=== PATIENT | female | born 1955 | race Caucasian/White ===

== ENCOUNTER 2022-06-30 02:23 | Emergency (ER) | payer MEDICARE, SELFPAY ==
[2022-06-30 02:39] VITALS: BP 128/81; PULSE 78; RESP 20; TEMP 37.2; O2SAT 96; BMI 35.5
--- NOTE | 2022-06-30 03:40 | ED.NURSE ---
registration states patient left without being seen by MD, form signed.
--- OUTSIDE RECORDS SUMMARY | 2022-06-30 03:51 | XMS_ITS | Encounter Summary ---
:1955 Author Organization [place] Address [address] [place] [address]. [place] [address] Care Team Providers Name Role Phone Denise Kwan Primary Care Provider Encounter Details Date Type Department Care Team Description 01/16/2018 Orders Only [facility] Reynaldo Delaney recruit instructor [address] [facility] [address] [place] [address] Social History Tobacco Use Types Packs/Day Years Used Date Smoking Tobacco: Never Smokeless Tobacco: Never Alcohol Use Standard Drinks/Week Comments Yes 0 (1 standard drink = 0.6 oz pure alcoho l) 1 drink monthly Sex Assigned at Date Recorded Not on file documented as of this encounter Plan of Treatment Not on filedocumented as of this encounter Visit Diagnoses Not on filedocumented in this encounter Care Teams Furnace And Wash Equipment Operator Relationship Specialty Start Date End Date Denise Kwan PCP - General Nurse Practitioner 02/02/15 [facility] [address] [place] [address] documented as of this encounter
--- OUTSIDE RECORDS SUMMARY | 2022-06-30 03:51 | XMS_ITS | Encounter Summary ---
:1955 Author Organization [place] Address [facility] [place] [address] Care Team Providers Name Role Phone Denise Kwan Primary Care Provider Reason for Referral Diagnostic Imaging XR (Routine) - Closed Specialty Diagnoses / Procedures Referred By Contact Refer red To Contact Diagnoses Left hip pain Osteoarthritis of hip Tanmay Beebe, Procedures XR Joint Injection Major Left [facility] [address] [facility] [address] [place] [address] Referral ID Status Reason Start Date Expiration Date Visits Requ ested Visits Authorized [id number] Closed 02/01/2022 02/01/2023 1 1 Reason for Visit Diagnostic Imaging XR (Routine) - Closed Specialty Diagnoses / Procedures Referred By Contact Refer red To Contact Diagnoses Left hip pain Osteoarthritis of hip Tanmay Beebe, Procedures XR Joint Injection Major Left [facility] [address] [place] [address] Referral ID Status Reason Start Date Expiration Date Visits Requ ested Visits Authorized [id number] Closed 02/01/2022 02/01/2023 1 1 Encounter Details Date Type Department Care Team Description 02/02/[address] [facility], Left hip pain; [facility] Tanmay Jay, Osteoarthritis of hip [address] [place], [place] OR[facility]EDICS [address] [phone] [address] [place] [address] Social History Tobacco Use Types Packs/Day Years Used Date Smoking Tobacco: Never Smokeless Tobacco: Never Alcohol Use Standard Drinks/Week Comments Yes 0 (1 standard drink = 0.6 oz pure alcoho l) 1 drink monthly Sex Assigned at Date Recorded Not on file COVID-19 Exposure Response Date Recorded In the last 10 days, have you been in contact with No / Unsu re 02/02/2022 3:14 PM CDT someone who was confirmed or suspected to have Coronavirus/COVID-19? documented as of this encounter Last Filed Vital Signs Vital Sign Reading Time Taken Comments Blood Pressure 128/66 02/02/2022 3:31 PM CDT Pulse 65 02/02/2022 3:31 PM CDT Temperature - - Respiratory Rate - - Oxygen Saturation - - Inhaled Oxygen Concentration - - Weight - - Height - - Body Mass Index - - documented in this encounter Medications at Time of Discharge Medication Sig Dispensed Refills Start Date End Date aspirin EC 325 MG Take one Aspirin tab 70 tablet 3 02/19/20 15 tabletIndications: twice daily for 5 Status post total right weeks. knee replacement ATENOLOL PO Take 50 mg by mouth 0 daily BIESTROGEN,20-80, 5 Apply topically 2 times 0 MG/GM CREAM daily fluticasone (FLONASE) 50 [place] 2 sprays into 0 MCG/ACT nasal spray both nostrils daily HYDROcodone-acetaminophe Take 1 tablet by mouth 75 tablet 0 02/18/2015 n (NORCO) 5-325 MG per every 6 hours as needed tabletIndications: for moderate to severe Status post total right pain knee replacement mupirocin (BACTROBAN) 2 Apply into each nare 2 0 % nasal ointment times daily order for Equipment being ordered: commode, long handled pack press operator 1 each 0 02/20/2015 DMEIndications: Status Treatment Diagnosis: decreas ed ADL performance secondary to R TKA post total right knee replacement order for Equipment being ordered: Walker Wheels ( E0155) and Walker (E0135) 1 each 0 02/16/2015 DMEIndications: Status Treatment Diagnosis: Impaired gait stability s /p TKA. post total right knee replacement PROGESTERONE MICRONIZED Take 100 mg by mouth 0 PO daily triamterene-hydrochlorot Take 1 tablet by mouth 0 hiazide (MAXZIDE-25) daily 37.5-25 MG per tablet documented as of this encounter Progress Notes Lan Delaney RN - 02/02/2022 3:37 PM CDT Pt was in Radiology today for a left hip steroid injection. Pt tolerated ortho procedure well. Pre procedure pain was 2/10 post procedure pain level unchanged. Procedure was completed by Ana SHEPHERD. There were no complications during this procedure. Pt verbalized understanding of written and verbal instructions and left department in stable and satisfactory condition with self. There is no evidence of bleeding or any other complications upon discharge. documented in this encounter Plan of Treatment Not on filedocumented as of this encounter Procedures Procedure Name Priority Date/Time Associated Diagnosis Comme nts XR JOINT INJECTION Routine 02/02/2022 4:06 PM Left hip p ain Results for this MAJOR LEFT CDT Osteoarthritis of procedure are in hip the results section. documented in this encounter Results XR Joint Injection Major Left (02/02/2022 4:06 PM CDT) Anatomical Region Laterality Modality Lower Extremity Left Radio Fluoroscopy Specimen (Source) Anatomical Location Collection Method / Collectio n Time Received Time / Laterality Volume Impressions 02/03/2022 1:07 PM CDT IMPRESSION: ??Technically successful left hip steroid/anesthetic injection with no initial pain relief. ? ?Long-term results pending. BECK FIELDS PA-C Narrative 02/03/2022 1:07 PM CDT XR JOINT INJECTION MAJOR LEFT ? 02/02/2022 4:06 PM ?? History: ??Left hip intraarticular injec tion. Left hip pain; Osteoarthritis of hip. ?? PROCEDURE: The risks (including bleeding , infection, and allergy to contrast and medications) and benefits o f the procedure were explained to the patient and consent was obtained. ??Using sterile technique and fluoroscopic guidance, a #22 gauge needl e was placed into the left hip joint using an anterior approach. ??A sm all amount of contrast was injected to confirm intraarticular locat ion of the needle tip. ??40mg of Kenalog and 3-4 mL Marcaine 0.5% were injected. ??Estimated blood loss during the procedure was less than 5 mL. No specimens collected. No initial complication. ?? Fluoroscopy time: 0.3 minutes Images Obtained: 1 Medications: 3 mL of approximately 1 mL of Isovue-M 200, 40 mg of Kenalog and 3 mL of Marcaine 0.5% The patients pain level (0-10 scale) wer e as follows: ?? PRE INJECTION ?? 2 ?? POST INJECTION 2 ?? Procedure Note Beck Fields PA-C - 02/03/2022F ormatting of this note might be different from the original. XR JOINT INJECTION MAJOR LEFT 02/02/2022 4:06 PM History: Left hip intraarticular injecti on. Left hip pain; Osteoarthritis of hip. PROCEDURE: The risks (including bleeding , infection, and allergy to contrast and medications) and benefits o f the procedure were explained to the patient and consent was obtained. Using sterile technique and fluoroscopic guidance, a #22 gauge needl e was placed into the left hip joint using an anterior approach. A smal l amount of contrast was injected to confirm intraarticular locat ion of the needle tip. 40mg of Kenalog and 3-4 mL Marcaine 0.5% were injected. Estimated blood loss during the procedure was less than 5 mL. No specimens collected. No initial complication. Fluoroscopy time: 0.3 minutes Images Obtained: 1 Medications: 3 mL of approximately 1 mL of Isovue-M 200, 40 mg of Kenalog and 3 mL of Marcaine 0.5% The patients pain level (0-10 scale) wer e as follows: PRE INJECTION 2 POST INJECTION 2 IMPRESSION: Technically successful left hip steroid/anesthetic injection with no initial pain relief. L neeru-term results pending. BECK FIELDS PA-C Tanmay Beebe MD [facility] ORDRachel KUSHALMANDI documented in this encounter Visit Diagnoses Diagnosis Left hip pain Pain in joint, pelvic region and thigh Osteoarthritis of hip Osteoarthrosis, unspecified whether gene ralized or localized, pelvic region and thigh documented in this encounter Administered Medications Inactive Administered Medications - up to 3 most recent administrations Medication Order MAR Action Action Date Dose Rate Site bupivacaine (PF) Given by Other Clinician 02/02/2022 3:58 PM 5 mg (MARCAINE) 0.5 % injection CDT Starting on Mon02/02/22 at 1535, For 1 dose, Lan Delaney: cabinet override iopamidol (ISOVUE-M 200) Given by Other 02/02/2022 3:59 PM CDT 1 mL solution 10 mL Clinician 10 mL, INTRA-ARTICULAR, ONCE, On Mon02/02/22 at 1600, For 1 dose, Supplied and administered by Radiology. lidocaine (PF) (XYLOCAINE) 1 % Given by Other 02/02/2022 3:58 PM CDT 10 mg injection Clinician Starting on Mon02/02/22 at 1535, For 1 dose, Lan Delaney: jesseniainet override triamcinolone (KENALOG-40) 40 Given by Other 02/02/2022 3:58 PM CDT 4 0 mg MG/ML injection Clinician Starting on Mon02/02/22 at 1535, For 1 dose, Lan Delaney: jesseniainet override documented in this encounter Care Teams Car Body Inspector Relationship Specialty Start Date End Date Denise Kwan PCP - General Nurse Practitioner 02/02/15 [facility] [address] [place] [address] documented as of this encounter
--- OUTSIDE RECORDS SUMMARY | 2022-06-30 03:51 | XMS_ITS | Encounter Summary ---
:1955 Author Organization [place] Address [facility] [place] [address] Care Team Providers Name Role Phone Denise Kwan Primary Care Provider Reason for Referral Diagnostic Imaging XR - Closed Specialty Diagnoses / Procedures Referred By Contact Refer red To Contact Radiology. Diagnoses Left hip pain Tanmay Beebe Xray Rscc Procedures XR Joint Injection Major Left MD [place] [address] [facility] [address] [facility] [address] [place] [phone] Fax: Referral ID Status Reason Start Date Expiration Date Visits Requ ested Visits Authorized [id number] Closed 01/02/2018 01/02/2019 1 1 Reason for Visit Diagnostic Imaging XR - Closed Specialty Diagnoses / Procedures Referred By Contact Refer red To Contact Radiology. Diagnoses Left hip pain Tanmay Beebe Xray Rscc Procedures XR Joint Injection Major Left MD [place] [address] [facility] [address] [place] [phone] Fax: Referral ID Status Reason Start Date Expiration Date Visits Requ ested Visits Authorized [id number] Closed 01/02/2018 01/02/2019 1 1 Encounter Details Date Type Department Care Team Description 01/17/2018 Hospital Encounter [facility] Tanmay Beebe Left hip pain [facility] MD [place] [address] [facility] [address] [place]ED[place], [place] [address] [address] [facility] [address] [place] [address] Social History Tobacco Use Types Packs/Day Years Used Date Smoking Tobacco: Never Smokeless Tobacco: Never Alcohol Use Standard Drinks/Week Comments Yes 0 (1 standard drink = 0.6 oz pure alcoho l) 1 drink monthly Sex Assigned at Date Recorded Not on file documented as of this encounter Last Filed Vital Signs Vital Sign Reading Time Taken Comments Blood Pressure 140/83 01/17/2018 2:59 PM CDT Pulse 76 01/17/2018 2:59 PM CDT Temperature - - Respiratory Rate [...] 0 MG/GM CREAM daily fluticasone (FLONASE) 50 [place] 2 sprays into 0 MCG/ACT nasal spray [...] for Equipment being ordered: commode, long handled anode adjuster 1 each 0 02/20/2015 DMEIndications: Status Treatment [...] encounter Progress Notes Lan Delaney RN - 01/17/2018 4:03 PM CDT Pt was in Radiology today for a left hip steroid injection .Pt tolerated ortho procedure well. Pre procedure pain was 3 post procedure pain level 0. Procedure was completed by Nathalia SHEPHERD. There were no complications during this procedure. Pt verbalized understanding of written and verbal instructions and left department in stable and satisfactory condition. There is no evidence of bleeding or any other complications upon discharge. Beck Fields PA-C - 01/17/2018 3:20 PM CDT RADIOLOGY PROCEDURE NOTE Patient name: Betzaida Faust : 1955 Pre-procedure diagnosis: Left hip pain Post-procedure diagnosis: Same Procedure Date/Time: January 17, 2018 3:20 PM Procedure: LEft hip steroid injection Estimated blood loss: None Specimen(s) collected with description: none The patient tolerated the procedure well with no immediate complications. Significant findings:none See imaging dictation for procedural details. Provider name: Beck Fields Hat Blocking Machine Operator(s):None documented in this encounter Plan of Treatment Not on filedocumented as of this encounter Procedures Procedure Name Priority Date/Time Associated Diagnosis Comme nts XR JOINT INJECTION Routine 01/17/2018 3:25 PM Left hip pain Re sults for this MAJOR LEFT CDT procedure are i n the results section. documented in this encounter Results XR Joint Injection Major Left (01/17/2018 3:25 PM CDT) Anatomical Region Laterality Modality Lower Extremity Left Radio Fluoroscopy Specimen (Source) Anatomical Location Collection Method / Collectio n Time Received Time / Laterality Volume Impressions 01/17/2018 4:01 PM CDT IMPRESSION: ??Technically successful ??left hip steroid/anesthetic injection with favorable initial pain re lief. ??Long-term results pending. BECK FIELDS PA-C Narrative 01/17/2018 4:01 PM CDT XR JOINT INJECTION MAJOR LEFT ? 01/17/2018 3:25 PM ?? History: ??Left hip steroid injection re quested. ?? PROCEDURE: The risks (including bleeding , [...] collected. No initial complication. ?? Fluoroscopy time: 0.1 minutes Images Obtained: 1 The patients pain level (0-10 scale) wer e as follows: ?? PRE INJECTION ?? 3 ?? POST INJECTION 0 ?? Procedure Note Beck Fields PA-C - 01/17/2018F ormatting of this note might be different from the original. XR JOINT INJECTION MAJOR LEFT 01/17/2018 3 :25 PM History: Left hip steroid injection requ ested. PROCEDURE: The risks (including bleeding , infection, [...] specimens collected. No initial complication. Fluoroscopy time: 0.1 minutes Images Obtained: 1 The patients pain level (0-10 scale) wer e as follows: PRE INJECTION 3 POST INJECTION 0 IMPRESSION: Technically successful left hip steroid/anesthetic injection with favorable initial pain re lief. Long-term results pending. BECK FIELDS PA-C Tanmay Beebe MD [facility] [place] documented in this encounter Visit Diagnoses Diagnosis Left hip pain Pain in joint, pelvic region and thigh documented in this encounter Administered Medications Inactive Administered Medications - up to 3 most recent administrations Medication Order MAR Action Action Date Dose Rate Site BUPivacaine (MARCAINE) injection Given 01/17/2018 3:21 PM CDT 20 mg 0.5% (PF) 20 mg (4 mL), INTRA-ARTICULAR, ONCE, On Mon01/17/18 at 1515, For 1 dose bupivacaine (PF) (MARCAINE) 0.5 % inject ion Starting on Mon01/17/18 at 1502, For 1 do se, Lan Delaney : cabinet override iopamidol (ISOVUE-M 200) solution 10 mL Given 01/17/2018 3:22 PM CDT 10 mLs 10 mL, INTRA-ARTICULAR, ONCE, On Mon01/17/18 at 1515, For 1 dose lidocaine (PF) (XYLOCAINE) 1 % injection 5 mL Given 01/17/2018 3:21 PM CDT 5 mLs 5 mL, Subcutaneous, ONCE, On Mon01/17/18 at 1515, For 1 dose lidocaine (PF) (XYLOCAINE) 1 % injection Starting on Mon01/17/18 at 1502, For 1 do se, Lan Delaney : cabinet override triamcinolone acetonide (KENALOG-40) 40 MG/ML injection Starting on Mon01/17/18 at 1502, For 1 do seElaina Robin : cabinet override triamcinolone acetonide (KENALOG-40) injection Given 0 01/17/2018 3:22 PM CDT 40 mg 40 mg 40 mg, INTRA-ARTICULAR, ONCE, On Mon01/17/18 at 1515, For 1 dose documented in this encounter Care Teams Machinist Instructor Relationship Specialty Start Date End Date Denise Kwan PCP - General Nurse Practitioner 02/02/15 [facility] [address] [place] [address] documented as of this encounter
--- OUTSIDE RECORDS SUMMARY | 2022-06-30 03:51 | XMS_ITS | Encounter Summary ---
:1955 Author Organization [place] Address [address] [place] [address]. [place] [address] Care Team Providers Name Role Phone Denise Kwan Primary Care Provider Encounter Details Date Type Department Care Team Description 08/21/2017 Orders Only [facility] April [place], surveying crew rodman [address] [place] [address] Social History Tobacco Use Types Packs/Day Years [...] on filedocumented in this encounter Care Teams Spindle Setter Relationship Specialty Start Date End Date Denise Kwan PCP - General Nurse Practitioner 02/02/[address] [address] documented as of this encounter
--- OUTSIDE RECORDS SUMMARY | 2022-06-30 03:51 | XMS_ITS | Encounter Summary ---
:1955 Author Organization [place] Address [address] [facility] [place] [address] Care Team Providers Name Role Phone Denise Kwan Primary Care Provider Reason for Visit (Routine) - Closed Specialty Diagnoses / Procedures Referred By Contact Refer red To Contact Radiology / Radiology. Diagnoses Written order sb pt Sh Xray Procedures XR JOINT INJECTION MAJOR LT [address] [facility] [place] [address] Phone: Referral ID Status Reason Start Date Expiration Date Visits Requ ested Visits Authorized [id number] Closed 08/11/2017 08/15/2018 1 1 Encounter Details Date Type Department Care Team Description 08/23/2017 Hospital Encounter [facility] Tanmay Beebe Left hip pain [facility] MD [place] [address] [facility] [address] [place]THOPEDICS [place], [place] [address] [address] [address] [place] [address] Social History Tobacco Use Types Packs/Day Years Used Date Smoking Tobacco: Never Smokeless Tobacco: Never Alcohol Use Standard Drinks/Week Comments Yes 0 (1 standard drink = 0.6 oz pure alcoho l) 1 drink monthly Sex Assigned at Date Recorded Not on file documented as of this encounter Last Filed Vital Signs Vital Sign Reading Time Taken Comments Blood Pressure 139/81 08/23/2017 3:35 PM STORAGE CONSULTANT Pulse 68 08/23/2017 3:35 PM STORAGE CONSULTANT Temperature - - Respiratory Rate - - [...] 0 MG/GM CREAM daily fluticasone (FLONASE) 50 [place] 2 sprays into 0 MCG/ACT nasal spray [...] for Equipment being ordered: commode, long handled bug trimmer 1 each 0 02/20/2015 DMEIndications: Status Treatment [...] encounter Progress Notes Lan Delaney RN - 08/23/2017 4:11 PM CST Pt tolerated ortho procedure well, post procedure pain level 0 but she was not in pain to start. There were no complications during procedure. Pt verbalized understanding of written and verbal instructions and left department in stable and satisfactory condition. There is no evidence of bleeding upon discharge. AGE CONSULTANT documented in this encounter Plan of Treatment Not on filedocumented as of this encounter Procedures Procedure Name Priority Date/Time Associated Diagnosis Comme nts XR JOINT INJECTION Routine 08/23/2017 4:26 PM Left hip pain Re sults for this MAJOR LEFT STORAGE CONSULTANT procedure are i n the results section. documented in this encounter Results XR Joint Injection Major Left (08/23/2017 4:26 PM STORAGE CONSULTANT) Anatomical Region Laterality Modality Lower Extremity Left Radio Fluoroscopy Specimen (Source) Anatomical Location Collection Method / Collectio n Time Received Time / Laterality Volume Impressions 08/23/2017 4:27 PM STORAGE CONSULTANT IMPRESSION: ??Technically successful left hip steroid/anesthetic injection with favorable initial pain re lief. ??Long-term results pending. BEKC FILEDS PA-C Narrative 08/23/2017 4:27 PM STORAGE CONSULTANT XR JOINT INJECTION MAJOR LEFT ? 08/23/2017 4:26 PM ?? History: ??Left hip intra-articular join t steroid injection requested. PROCEDURE: The risks (including bleeding , infection, [...] e as follows: ?? PRE INJECTION ?? 0 ?? POST INJECTION 0 ?? Procedure Note Beck Fields PA-C - 08/23/2017F ormatting of this note might be different from the original. XR JOINT INJECTION MAJOR LEFT 08/23/2017 4:26 PM History: Left hip intra-articular joint steroid injection requested. PROCEDURE: The risks (including bleeding , infection, [...] scale) wer e as follows: PRE INJECTION 0 POST INJECTION 0 IMPRESSION: Technically successful left hip steroid/anesthetic injection with favorable initial pain re lief. Long-term results pending. BECK FIELDS PA-C Traci Mckeon PA-C IMG DIAGNOSTIC IMAGING ORDER DIONI documented in this encounter Visit Diagnoses Diagnosis Left hip pain Pain in joint, pelvic region and thigh documented in this encounter Administered Medications Inactive Administered Medications - up to 3 most recent administrations Medication Order MAR Action Action Date Dose Rate Site bupivacaine (PF) (MARCAINE) 0.5 % Given 08/23/2017 4:25 PM STORAGE CONSULTANT 1 50 mg injection Starting on Mon08/23/17 at 1538, For 1 dose, Lan Delaney : cabinet override iopamidol (ISOVUE-M 200) solution 10 mL Given 08/23/2017 4:24 PM STORAGE CONSULTANT 10 mLs 10 mL, INTRA-ARTICULAR, ONCE, On Mon08/23/17 at 1530, For 1 dose lidocaine (PF) (XYLOCAINE) 1 % injection Given 08/23/2017 4:24 PM STORAGE CONSULTANT 50 mg Starting on Mon08/23/17 at 1538, For 1 dose, Lan Delaney : cabinet override triamcinolone acetonide (KENALOG-40) 40 MG/ML Given 4:25 PM STORAGE CONSULTANT 40 mg injection Starting on Mon08/23/17 at 1538, For 1 dose, Lan Delaney : cabinet override documented in this encounter Care Teams Assignment Manager Relationship Specialty Start Date End Date Denise Kwan PCP - General Nurse Practitioner 02/02/15 [facility] [address] [place] [address] documented as of this encounter
--- OUTSIDE RECORDS SUMMARY | 2022-06-30 03:51 | XMS_ITS | Encounter Summary ---
:1955 Author Organization [place] Address [address] [place] [address]. [place] [address] Care Team Providers Name Role Phone Denise Kwan Primary Care Provider Encounter Details Date Type Department Care Team Description 02/02/2022 Travel Social History Tobacco Use Types Packs/Day Years [...] have Coronavirus/COVID-19? documented as of this encounter Plan of Treatment Not on filedocumented as of this encounter Visit Diagnoses Not on filedocumented in this encounter Care Teams Cane Cutter Relationship Specialty Start Date End Date Denise Kwan PCP - General Nurse Practitioner 02/02/15 [facility] [address] [place], [place] [id number] documented as of this encounter
--- OUTSIDE RECORDS SUMMARY | 2022-06-30 03:51 | XMS_ITS | Encounter Summary ---
:1955 Author Organization [facility] Address [address] [place] [address]. [place] [address] Care Team Providers Name Role Phone Denise Kwan Primary Care Provider Encounter Details Date Type Department Care Team Description 08/18/2017 Orders Only [facility] Reynaldo Delaney critical power technician [address] [facility] [address] [place] [address] Social History Tobacco Use [...] on filedocumented in this encounter Care Teams Lining Closer Relationship Specialty Start Date End Date Denise Kwan PCP - General Nurse Practitioner 02/02/15 [facility] [address] [place] [address] documented as of this encounter
--- OUTSIDE RECORDS SUMMARY | 2022-06-30 03:51 | XMS_ITS | Clinical Summary ---
:1955 Author Organization [place] Address [facility] [place] [address] Care Team Providers Name Role Phone Denise Kwan Primary Care Provider Allergies Active Allergy Reactions Severity Noted Date Comments Oxycodone Itching 02/18/2015 Medications Medication Sig Dispensed Refills Start Date End Date Status ATENOLOL PO Take 50 mg by mouth 0 Active daily fluticasone (FLONASE) [place] 2 sprays into 0 Active 50 MCG/ACT nasal both nostrils daily spray PROGESTERONE Take 100 mg by 0 Ac tive MICRONIZED PO mouth daily BIESTROGEN,20-80, 5 Apply topically 2 0 Active MG/GM CREAM times daily mupirocin (BACTROBAN) Apply into each 0 Active 2 % nasal ointment nare 2 times daily order for Equipment being ordered: Walker Wheels ( [id number]) and Walker ([id number]) 1 each 0 02/16/2015 Active DMEIndications: Treatment Diagnosis: Impaired gait stability s/p TKA. Status post total right knee replacement triamterene-hydrochlo Take 1 tablet by 0 Active rothiazide mouth daily (MAXZIDE-25) 37.5-25 MG per tablet aspirin EC 325 MG Take one Aspirin 70 tablet 3 02/18/2015 Active tabletIndications: tab twice daily for Status post total 5 weeks. right knee replacement HYDROcodone-acetamino Take 1 tablet by 75 tablet 0 02/18/2015 Active phen (NORCO) 5-325 MG mouth every 6 hours per as needed for tabletIndications: moderate to severe Status post total pain right knee replacement order for Equipment being ordered: commode, long handled enrollment eligibility representative 1 each 0 02/20/2015 Active DMEIndications: Treatment Diagnosis: decreas ed ADL performance secondary to R TKA Status post total right knee replacement Active Problems Problem Noted Date S/P total knee replacement 02/16/2015 Social History Tobacco Use Types Packs/Day Years Used Date Smoking Tobacco: Never Smokeless Tobacco: Never Alcohol Use Standard Drinks/Week Comments Yes 0 (1 standard drink = 0.6 oz pure alcoho l) 1 drink monthly Sex Assigned at Date Recorded Not on file Last Filed Vital Signs Vital Sign Reading Time Taken Comments Blood Pressure 128/66 02/02/2022 3:31 PM CDT Pulse 65 02/02/2022 3:31 PM CDT Temperature 36.7 ??C (98.1 ??F) 02/20/2015 7:49 AM CDT Respiratory Rate 16 02/20/2015 7:49 AM CDT Oxygen Saturation 94% 02/20/2015 7:49 AM CDT Inhaled Oxygen Concentration - - Weight 98.8 kg (217 lb 14.4 oz) 02/16/2015 8:51 AM CDT Height 165.1 cm (5' 5) 02/16/2015 8:51 AM CDT Body Mass Index 36.26 02/16/2015 8:51 AM CDT Plan of Treatment Health Maintenance Due Date Last Done Comments ADVANCE CARE PLANNING 1955 ANNUAL REVIEW OF HM ORDERS 1955 CT COLONOGRAPHY 1955 DEXA 1955 FIT-DNA (Cologuard) 1955 FIT 1955 FLEX SIG 1955 COVID-19 Vaccine (#1) 1955 COLONOSCOPY 1965 COLORECTAL CANCER SCREENING 1965 HEPATITIS C SCREENING 1973 LIPID 01/19/2000 FALL RISK ASSESSMENT 01/19/2020 PHQ-2 (once per calendar 08/14/2021 year) MEDICARE ANNUAL WELLNESS 09/25/2021 09/25/2020 VISIT Pneumococcal Vaccine: 65+ 09/25/2021 09/25/2020 Years (2 - PCV) INFLUENZA VACCINE (#1) 2022 06/04/2021, 05/14/2020, 04/15/2020, Additional history exists MAMMO SCREENING 02/03/2024 02/02/2022 DTAP/TDAP/TD IMMUNIZATION 03/07/2027 03/07/2017, 09/11/2006 (3 - Td or Tdap) HEPATITIS B IMMUNIZATION Completed 09/11/2006, 05/24/2001, 04/10/2001 ZOSTER IMMUNIZATION Completed 03/13/2018, 12/10/2017, 03/09/2012 IPV IMMUNIZATION Aged Out No longer eligi ble based on patient 's age to complete this topic MENINGITIS IMMUNIZATION Aged Out No longe r eligible based on patient 's age to complete this topic Medical Devices Implanted Type Area Limnologist Device Shelf Model / Serial Identifier Expiration Date / L ot Tibial Bearing Right: ARTHREX 02/08/2019 AR-5 [id number] / Implanted: Qty: 1 on 02/16/2015 by Connie amaya, Tanmay Jay MD at [facility] Knee / [id number] Insurance Payer Benefit Plan / Subscriber ID Effective Phone Address T ype Group Dates [employer] P[employer] HMO [id number] 2015-Prese [phone] [address] [address] [address] [place] [address] Advance Directives For more information, please contact: [phone] Latest Code Status on File Code Status Date Activated Date Inactivated Comments Full Code 02/16/2015 3:57 PM 02/20/2015 2:57 PM Care Teams Chief Legal Officer Relationship Specialty Start Date End Date Denise Kwan PCP - General Nurse Practitioner 02/02/15 [facility] [address] [facility] [place] [address]
--- OUTSIDE RECORDS SUMMARY | 2022-06-30 03:52 | XMS_ITS | Encounter Summary ---
:1955 Author Organization [facility] Address [address] [facility] [place] [address] Care Team Providers Name Role Phone Denise Kwan Primary Care Provider Reason for Visit Auth/Cert - Closed Specialty Diagnoses / Procedures Referred By Contact Refer red To Contact Surgery Diagnoses Right DJD Rh Periop Services Procedures ARTHROPLASTY KNEE INJECT STEROID (LOCATION) [address] [employer] [place], [place] [address] Phone: Fax: Referral ID Status Reason Start Date Expiration Date Visits Requ ested Visits Authorized [id number] Closed 1 1 Encounter Details Date Type Department Care Team Description 02/16/2015 Surgery [facility] Right total knee [facility] corby Jay MD arthroplasty using the [address] [facility] [employer] knee [place] [place] [facility] system and left knee [id number] intraarticular injection [phone] [address] [place] [address] Surgery Details Date/Time Status Location OR Service Patient Case Case Traum a Class Class Type Case? 02/16/15 9:50 Posted [facility] OR OR 04 Orthopedics Surgery AM Admit Panel 1 Procedure LRB Anes Op Region Wound Class Commen ts Right total knee Right General with Knee I-Clean Right total knee arthroplasty using the Block ar throplasty using [employer] knee the [employer] system and left knee knee system and left intraarticular knee intra articular injection of steroid inje ction of steroid INJECTION, STEROID Left General Knee I-Clean Surgeon Surgeon Role Service Panel Tanmay Beebe MD Primary Orthopedics 1 Traci Mckeon PA-C Assisting Web Sizer Authorization 1 Special Needs Class and Swab 02/05/2015 milagrose, 5'5, 220 # STATED documented in this encounter Social History Tobacco Use Types Packs/Day Years Used Date Smoking Tobacco: Never Smokeless Tobacco: Never Alcohol Use Standard Drinks/Week Comments Yes 0 (1 standard drink = 0.6 oz pure alcoho l) 1 drink monthly Sex Assigned at Date Recorded Not on file documented as of this encounter Last Filed Vital Signs Vital Sign Reading Time Taken Comments Blood Pressure 132/76 02/16/2015 12:30 PM CDT Pulse - - Temperature 36.3 ??C (97.4 ??F) 02/16/2015 12:26 PM CDT Respiratory Rate 12 02/16/2015 12:30 PM CDT Oxygen Saturation 100% 02/16/2015 12:30 PM CDT Inhaled Oxygen Concentration - - Weight 98.8 kg (217 lb 14.4 oz) 02/16/2015 8:51 AM CDT Height 165.1 cm (5' 5) 02/16/2015 8:51 AM CDT Body Mass Index 36.26 02/16/2015 8:51 AM CDT documented in this encounter Discharge Summaries Traci King PA-C - 03/02/2015 5:10 PM CDT Discharge Summary Tacho Glasgow Date of : 1955 Age: [age] year old Date of Admission: 02/16/2015 Date of Discharge: 02/20/2015 Reason for Admission: Tacho Glasgow is an 60 year old female who was admitted to the hospital followingsurgery with Dr. Tanmay Beebe. Preoperative Diagnosis: Right knee DJD Postoperative Diagnosis: Right knee DJD Procedure Completed: right total knee arthroplasty Hospital Course: Ms. Glasgow was admitted and underwent the above procedure. The patient tolerated the procedure well. There were no complications. Following surgery she was admitted to the floor. During her stay she did not require any blood transfusions. Her last hemoglobin was noted to be HGB 9.9 02/18/2015. Her pain was controlled with oral pain medication. During her stay she progressed well in physical therapy and all the therapy goals were met. Social work helped arranged for her to get home physical therapy afterher discharge. Discharge Physical Exam: BP 148/80 mmHg Temp(Src) 98.1 ??F (36.7 ??C) (Oral) Resp 16 Ht 1.651 m (5' 5) Wt 98.839 kg (217 lb 14.4 oz) BMI 36.26 kg/m2 SpO2 94% Neurovascularly intact, distal pulses present bilaterally. Calves are negative bilaterally, both soft and nontender. The wound looks good with minimal erythema of the surrounding skin. Assessment: Ms. Glasgow is stable and doing well status post right total knee arthroplasty on POD #4. Plan: We will discharge her home on analgesics and deep venous thrombosis prophylaxis. She will follow-up with Traci King PA-C or Dr. Tanmay Beebe approximately 2 weeks from surgery. She may call [phone] to schedule an appointment. Discharge Instructions: Discharge diet: Regular Discharge activity: Weight bear as tolerated. Advance from the walker to a cane as tolerated. Discontinue the use of cane when comfortable. Physical therapy: Work on therapy exercises given in the hospital. Discharge follow-up: Follow up with Traci King PA-C in 10-14 days. Anticoagulation Asprin 325 mg twice daily for 5 weeks. Wound care: Leave aquacel dressing in place until post-op follow-up. If it becomes loose or soiled then remove and replace with daily dry dressings. Keep wound clean and dry. May get incision area wet in shower but do not soak or scrub. Meds: Tacho Glasgow Home Medication Instructions NEYMAR:[id number] Printed on:03/02/15 1711 Medication Information aspirin EC 325 MG tablet Take one Aspirin tab twice daily for 5 weeks. ATENOLOL PO Take 50 mg by mouth daily BIESTROGEN,20-80, 5 MG/GM CREAM Apply topically 2 times daily fluticasone (FLONASE) 50 MCG/ACT nasal spray [place] 2 sprays into both nostrils daily HYDROcodone-acetaminophen (NORCO) 5-325 MG per tablet Take 1 tablet by mouth every 6 hours as needed for moderate to severe pain mupirocin (BACTROBAN) 2 % nasal ointment Apply into each nare 2 times daily order for DME Equipment being ordered: Walker Wheels (E0155) and Walker ([id number]) Treatment Diagnosis: Impaired gait stability s/p TKA. order for DME Equipment being ordered: commode, long handled portrait artist Treatment Diagnosis: decreased ADL performance secondary to R TKA PROGESTERONE MICRONIZED PO Take 100 mg by mouth daily triamterene-hydrochlorothiazide (MAXZIDE-25) 37.5-25 MG per tablet Take 1 tablet by mouth daily Traci King PA-C O: [phone] documented in this encounter Discharge Instructions Discharge InstructionsTracey Hernández RN - 02/17/2015 3:30 AM CDT Call Md before or after your follow up appointment if: 3. Increased/persistent temperature chills and/or sweats 4.increased/uncontrolled pain despite pain medication, sedated 5.increased/persistent bleeding, redness, swelling, bruising, drainage (yellow/odorous) or incision would pull apart 6. Calf pain, swollen/hard/warm area, chest pain or shortness of breath 7.weakness in operative leg, knee buckling, numbness and/or tingling. Or if you Fall 8. Nausea, vomiting, constipation and/or diarrhea 9. Too sleepy 10 Trouble voiding or signs and symptoms of urinary tract infection. 11. Constipation unrelieved by stool softeners (see Other instructions below) Activity instructions: 1. Do exercises at home as instructed by therapist twice a day. Continue outpatient therapy as ordered by your doctor. 2. Ice knee after exercises and therapy or 20 minutes 3-4 times a day to reduce pain and swelling 3. If your doctor orders a cpm use as tolerated 0-90 degrees 4. Slowly increase activity back to baseline Diet Information Drink plenty of fluids Eat a regular balanced diet Dressing information: May shower (leave dressing on ),dressing is water proof. examine around incision daily for any signs and symptoms of infection. Wash hands before touching skin surrounding incision DO NOT change dressing daily leave on until follow up apt. Inspect surrounding skin daily for s/s of infections. Do not soak in tub or pool. If dressing loosens wash hands, tape down edge and call surgeon. If the dressing comes off completely then place sterile gauze over incision and tape around all edges and call surgeon for further direction. Other instructions: 1. Notify your dentist of your implant so you can get antibiotics before any dental work or before any invasive procedure 2. Remove anti-embolism stockings (Teds) 2 times a day 3. Take an over the counter stool softener (mirilax or senna) as directed while on narcotics to ensure bowel movements are regular. Take a laxative (milk of magnesia and/or a suppository )as directed if no bm in 2 days. 4. Keep track of when you take all medication, especially pain medication. See bottles for instructions and side effects 5. Use incentive spirometry hourly until you are back to normal activity (helps prevent pneumonia) 6. See medication handouts for medication information and side effects 7. DO NOT DRINK or DRIVE on narcotic pain medication. Follow up information Call Md to make a follow up apt. @ [facility] [phone] 10-14 days from the day of surgery Thank you for choosing [facility] documented in this encounter Medications at Time [...] 0 MG/GM CREAM daily fluticasone (FLONASE) 50 [place] 2 sprays into 0 MCG/ACT nasal spray [...] for Equipment being ordered: commode, long handled portrait artist 1 each 0 02/20/2015 DMEIndications: Status Treatment [...] documented as of this encounter Progress Notes Traci King PA-C - 02/20/2015 7:36 AM CDT Orthopedic Surgery 02/20/2015 POD#: 4 S: Patient voices no complaints today. Feeling better today, and continues to deny parasthesias, calf pain, SOB, dizziness. O: Blood pressure 138/78, temperature 98 ??F (36.7 ??C), temperature source Oral, resp. rate 16, height 1.651 m (5' 5), weight 98.839 kg (217 lb 14.4 oz), SpO2 92 %. HGB 9.9 02/18/2015 I/O last 3 completed shifts: In: 720 [P.O.:720] Out: - Neurovascularly intact. Calves are negative bilaterally, both soft and nontender. The wound is C/D/I. The wound looks good with minimal erythema of the surrounding skin. A: Ms. Glasgow is doing well status post Procedure(s): R TKA and L knee cortisone injection P: 1. Mobilize and continue physical therapy. 2. Anticoagulation - home on ASA 3. Pain management - norco 4. Anticipate discharge to home later today with home therapy. Traci King PA-C O: [phone] ET Pratibha Flores - 02/19/2015 3:36 PM CDT D: Order noted for d/c planning I/A: MEt with pt. She lives at home with in multi-level home. She feels comfortable going home tomorrow but is requesting home therapies. She doesn't think it's feasible to drive back and forthwith for OP therapies. She was offered preference of home care agency and she has no preference. Made a referral to [facility]. Info was faxed to [facility] at [phone]. They will contact pt tomorrow for intake on Monday. P: No further SW needs at this time. Anticipate d/c tomorrow. Gurmeet Diggs MD - 02/19/2015 8:51 AM CDT [facility] Hospitalist Progress Note Patient Name: Tacho Glasgow Provider: Gurmeet Diggs MD 02/19/2015 Initial presenting complaint/issue to hospital (Diagnosis): right total knee arthroplasty Assessment and Plan: Summary of Stay: Tacho Glasgow is a 60 year old female with history of hypertension, sleep apnea that is currently untreated, M??ni??re's disease, and arthritis. She presented for elective right total knee arthroplasty on 02/16/15. Surgery was performed without complications. Problem List: 1. Postop right total knee arthroplasty on 02/16/15. Doing well. Still some knee pain. Some intermittent nausea. Therapy is going ok. 2. Hypertension. BP has gotten a little high in the last 36 hours- likely due to pain, nausea, constipation, etc. I suspect it will improve as these things improve. Continue atenolol and triamterene. Iwill add prn hydralazine. 3. Obstructive sleep apnea. Currently untreated. Monitor oxygen saturations. 4. Care plan. Patient plans to discharge home tomorrow. DVT Prophylaxis: - Lovenox Code Status: Full Code Discharge Dispo: Home Estimated Disch Date / # of Days until Discharge: Likely tomorrow. Interval History: Patient is doing pretty well. She is having knee pain and some intermittent nausea. She was constipated last night but that improved with laxative therapy. Physical Exam: Last Vital Signs: BP 166/67 mmHg Temp(Src) 97.7 ??F (36.5 ??C) (Oral) Resp 18 Ht 1.651 m (5' 5) Wt 98.839 kg (217 lb 14.4 oz) BMI 36.26 kg/m2 SpO2 92% Intake/Output Summary (Last 24 hours) at 02/19/15 0854 Last data filed at 02/19/15 0336 Gross per 24 hour Intake 1490 ml Output 600 ml Net 890 ml GENERAL: Uncomfortable appearing. Cooperative. PSYCH: pleasant, oriented, No acute distress. EYES: PERRLA, Normal conjunctiva. HEART: Regular rate and rhythm. No JVD. Pulses normal. No edema. LUNGS: Clear to auscultation, normal Respiratory effort. ABDOMEN: Soft, no hepatosplenomegaly, normal bowel sounds. EXTREMETIES: No clubbing, cyanosis or ischemia SKIN: Dry to touch, No rash. Medications: All current medications were reviewed. Data: All new lab and imaging data was reviewed. Labs: NA 138 02/17/2015 CHLORIDE 105 02/17/2015 BUN 13 02/17/2015 POTASSIUM 4.1 02/17/2015 CO2 27 02/17/2015 CR 0.63 02/17/2015 CR 0.81 02/16/2015 Recent Labs Lab 02/19/15 0610 02/18/15 0730 02/17/15 0620 02/16/15 1840 HGB -- 9.9* 9.8* -- PLT 197 -- -- 202 Tanmay Beebe MD - 02/19/2015 8:21 AM CDT Orthopedic Surgery 02/19/2015 S: Patient voices no complaints today. O: Blood pressure 166/67, temperature 97.7 ??F (36.5 ??C), temperature source Oral, resp. rate 18, height 1.651 m (5' 5), weight 98.839 kg (217 lb 14.4 oz), SpO2 92 %. HGB 9.9 02/18/2015 No results found for this basename: INR Neurovascularly intact. Calves are negative bilaterally, both soft and nontender. The wound is C/D/I. The wound looks good with minimal erythema of the surrounding skin. A: Ms. Glasgow is doing well status post Procedure(s): ARTHROPLASTY KNEE INJECT STEROID (LOCATION). P: Continue physical therapy. Anticoagulation Pain management Discharge planning, recommend home with home care. DC today or tomorrow depending on physical therapy Tanmay Beebe MD [phone] Gurmeet Diggs MD - 02/18/2015 1:50 PM CDT Chart check. Patient seems to be doing well, medically. She may need TCU on discharge, though. I will continue to follow peripherally and assist with TCU d/c orders if needed. Traci King PA-C - 02/18/2015 8:09 AM CDT Orthopedic Surgery 02/18/2015 POD#: 2 S: Patient voices no complaints today. Denies parasthesias, SOB, calf pain, dizziness. O: Blood pressure 128/64, temperature 96.9 ??F (36.1 ??C), temperature source Oral, resp. rate 16, height 1.651 m (5' 5), weight 98.839 kg (217 lb 14.4 oz), SpO2 96 %. HGB 9.9 02/18/2015 I/O last 3 completed shifts: In: 1440 [P.O.:1440] Out: 4500 [Urine:4500] Neurovascularly intact. Calves are negative bilaterally, both soft and nontender. The wound is C/D/I. The wound looks good with minimal erythema of the surrounding skin. A: Ms. Glasgow is doing well status post Procedure(s): R TKA and L knee corticosteroid injection P: 1. Mobilize and continue physical therapy. 2. Anticoagulation - home on ASA 3. Pain management - dc on norco 4. Anticipate discharge to home with home therapy Monday, given no assistance at home evening. Traci King PA-C O: [phone] Sarah Eric, OT - 02/17/2015 2:10 PM CDT 02/17/15 1359 Quick Adds Type of Visit Initial Occupational Therapy Evaluation Living Environment (R) Lives With spouse Living Arrangements house (Farm house) Home Accessibility stairs to enter home;stairs within home;tub/shower is not walk in;bed and bath are not on the first floor Number of Stairs To Enter Home 3 Number of Stairs Within Home 15 Stair Railings At Home present on right side Transportation Available car;family or friend will provide Living Environment Comment Pt reported to live in 2 story farmhouse with bed and bathroom on second level. Pt has a low toilet and claw foot bathtub. able to help for a few days. Self-Care Dominant Hand right Usual Activity Tolerance moderate Current Activity Tolerance fair Regular Exercise no Equipment Used at Home cane, straight Activity/Exercise/Self-Care Comment Pt reported to be independent in ADLs/IADLs at baseline. Has been using a cane for mobility due to knee and ankle pain. (R) Functional Level Prior (R) Ambulation 1-->assistive equipment (R) Transferring 1-->assistive equipment (R) Toileting 0-->independent (R) Bathing 0-->independent (R) Dressing 0-->independent (R) Eating 0-->independent (R) Communication 0-->understands/communicates without difficulty (R) Swallowing 0-->swallows foods and liquids without difficulty (R) Cognition 0 - no cognition issues reported (R) Fall history within last six months no (R) Which of the above functional risks had a recent onset or change? ambulation;transferring;bathing Prior Functional Level Comment Pt reported decreased activity tolerance secondary to pain. Sharepoint Specialist Sharepoint Specialist Present no General Information Onset of Illness/Injury or Date of Surgery - Date 02/16/[address] Tanmay Beebe Patient/Family Goals Statement Return to home. Pertinent History of Current Problem Pt admitted with R and L knee OA s/p R TKA and L knee steroid injection. Precautions/Limitations fall precautions Weight-Bearing Status - LLE weight-bearing as tolerated Weight-Bearing Status - RLE weight-bearing as tolerated General Info Comments activity: ambulate with assist Cognitive Status Examination Orientation orientation to person, place and time Level of Consciousness alert Follows Commands and Answers Questions 100% of the time Personal Safety and Judgment intact Memory intact Attention No deficits were identified Organization/Problem Solving No deficits were identified Executive Function No deficits were identified Visual Perception Visual Perception Wears glasses (reading) Sensory Examination Sensory Quick Adds No deficits were identified Pain Assessment Patient Currently in Pain Yes, see Vital Sign flowsheet Integumentary/Edema Integumentary/Edema no deficits were identifed Posture Posture not impaired Range of Motion (ROM) ROM Quick Adds No deficits were identified ROM Comment B UE AROM WFL Strength Manual Muscle Testing Quick Adds Other Strength Comments B UE strength grossly 4/5. Hand Strength Hand Strength Comments WFL Muscle Tone Assessment Muscle Tone Quick Adds No deficits were identified Coordination Upper Extremity Coordination No deficits were identified Mobility Bed Mobility Comments SBA supine>sit Transfer Skill: Bed to Chair/Chair to Bed Level of Hardy: Bed to Chair minimum assist (75% patients effort) Weight-Bearing Restrictions weight-bearing as tolerated Assistive Device - Transfer Skill Bed to Chair Chair to Bed Rehab Eval rolling walker Transfer Skill: Sit to Stand Level of Hardy: Sit/Stand minimum assist (75% patients effort) Transfer Skill: Sit to Stand weight-bearing as tolerated Assistive Device for Transfer: Sit/Stand rolling walker Lower Body Dressing Level of Hardy: Dress Lower Body maximum assist (25% patients effort) Physical Assist/Nonphysical Assist: Dress Lower Body set-up required Grooming Level of Hardy: Grooming stand-by assist Physical Assist/Nonphysical Assist: Grooming set-up required Eating/Self Feeding Level of Hardy: Eating independent Physical Assist/Nonphysical Assist: Eating set-up required Instrumental Activities of Daily Living (IADL) Previous Responsibilities meal prep;housekeeping;laundry;shopping;yardwork;medication management;donato nces;driving;work Activities of Daily Living Analysis Impairments Contributing to Impaired Activities of Daily Living balance impaired;pain;post surgical precautions;strength decreased General Therapy Interventions Planned Therapy Interventions ADL retraining;transfer training Clinical Impression Criteria for Skilled Therapeutic Interventions Met yes, treatment indicated OT Diagnosis decreased ADL performance Influenced by the following impairments R TKA Rehab Potential good, to achieve stated therapy goals Rehab potential affected by pain Therapy Frequency daily Predicted Duration of Therapy Intervention (days/wks) 3 days Anticipated Equipment Needs at Discharge dressing equipment;toileting equipment;bathing equipment Anticipated Discharge Disposition Home with Outpatient Therapy;Transitional Care Facility Risks and Benefits of Treatment have been explained. Yes Patient, Family & other staff in agreement with plan of care Yes Total Evaluation Time Total Evaluation Time (Minutes) 10 Jazmyn Andrade LSW - 02/17/2015 12:12 PM CDT SWS D: Per MD request to assist with discharge planning. Chart reviewed noting pt's admit yesterday after surgery for R TKA, noted PT assessment with anticipation of pt's return home with out-pt PT services on discharge. Pt lives with her in their multi-level home in [place], prior to surgery she had been independent with ambulation (use of cane) and ADLs. A: Based on progress and support available anticipate pt's return home on discharge with assist of as needed. Pt has access to cane.. PT/OT will assess for DME needs for home adjustment and issue, or provide information where pt may obtain recommended DME. P: No SW needs identified at this time, available until discharge should needs arise. Gurmeet Diggs MD - 02/17/2015 9:31 AM CDT [facility] Hospitalist Progress Note Patient Name: Tacho Glasgow Provider: Gurmeet Diggs MD 02/17/2015 Initial presenting complaint/issue to hospital (Diagnosis): right total knee arthroplasty Assessment and Plan: Summary of Stay: Tacho Glasgow is a 60 year old female with history of Hypertension, sleep apnea thatis currently untreated, M??ni??re's disease, and arthritis. She presented for elective right total knee arthroplasty on 02/16/15. Surgery was performed without complications. Problem List: 1. Postop right total knee arthroplasty on 02/16/15. Doing well. Pain is controlled fairly well. Therapy started today. Lovenox has been ordered for DVT prophylaxis. 2. Hypertension. Continue atenolol and triamterene. 3. Obstructive sleep apnea. Currently untreated. Monitor oxygen saturations. 4. Care plan. The patient is doing well. She has no active medical problems. I will follow at a distance with chart checks daily until gone. Please call me with specific questions. DVT Prophylaxis: - Lovenox Code Status: Full Code Discharge Dispo: Home Estimated Disch Date / # of Days until Discharge: Likely in 2 days Interval History: Patient is doing well. She had some charley horse pain last night which is better. No new problems. Physical Exam: Last Vital Signs: BP 127/60 mmHg Temp(Src) 95.4 ??F (35.2 ??C) (Oral) Resp 18 Ht 1.651 m (5' 5) Wt 98.839 kg (217 lb 14.4 oz) BMI 36.26 kg/m2 SpO2 95% Intake/Output Summary (Last 24 hours) at 02/17/15 0935 Last data filed at 02/17/15 0616 Gross per 24 hour Intake 3766 ml Output 2330 ml Net 1436 ml GENERAL: Comfortable. Cooperative. PSYCH: pleasant, oriented, No acute distress. EYES: PERRLA, Normal conjunctiva. HEART: Regular rate and rhythm. No JVD. Pulses normal. No edema. LUNGS: Clear to auscultation, normal Respiratory effort. ABDOMEN: Soft, no hepatosplenomegaly, normal bowel sounds. EXTREMETIES: No clubbing, cyanosis or ischemia SKIN: Dry to touch, No rash. Medications: All current medications were reviewed. Data: All new lab and imaging data was reviewed. Labs: NA 138 02/17/2015 CHLORIDE 105 02/17/2015 BUN 13 02/17/2015 POTASSIUM 4.1 02/17/2015 CO2 27 02/17/2015 CR 0.63 02/17/2015 CR 0.81 02/16/2015 Recent Labs Lab 02/17/15 0620 02/16/15 1840 HGB 9.8* -- PLT -- 202 Tanmay Beebe MD - 02/17/2015 7:00 AM CDT Orthopedic Surgery 02/17/2015 S: Patient voices no complaints today. O: Blood pressure 130/78, temperature 96 ??F (35.6 ??C), temperature source Axillary, resp. rate 18,height 1.651 m (5' 5), weight 98.839 kg (217 lb 14.4 oz), SpO2 95 %. HGB 9.8 02/17/2015 No results found for this basename: INR Neurovascularly intact. Calves are negative bilaterally, both soft and nontender. The wound is C/D/I. The wound looks good with minimal erythema of the surrounding skin. A: Ms. Glasgow is doing well status post Procedure(s): ARTHROPLASTY KNEE INJECT STEROID (LOCATION). P: Continue physical therapy. Anticoagulation Pain management Discharge planning Tanmay Beebe MD [phone] Willi Bateman, PT - 02/16/2015 6:08 PM CDT 02/16/15 3555 Quick Adds Type of Visit Initial PT Evaluation Living Environment (R) Lives With spouse Living Arrangements house Home Accessibility stairs to enter home;stairs within home Number of Stairs To Enter Home 3 Number of Stairs Within Home 15 Stair Railings At Home present on right side Self-Care Dominant Hand right Usual Activity Tolerance moderate Current Activity Tolerance fair Regular Exercise no Equipment Used at Home cane, straight Activity/Exercise/Self-Care Comment Pt states she has been using a cane due to knee and L ankle pain, otherwise functions independently. (R) Functional Level Prior (R) Ambulation 1-->assistive equipment (R) Transferring 0-->independent (R) Toileting 0-->independent (R) Bathing 0-->independent (R) Dressing 0-->independent (R) Eating 0-->independent (R) Communication 0-->understands/communicates without difficulty (R) Swallowing 0-->swallows foods and liquids without difficulty (R) Cognition 0 - no cognition issues reported (R) Fall history within last six months no (R) Which of the above functional risks had a recent onset or change? ambulation;transferring Prior Functional Level Comment Pt states she has been significantly limited by progressive knee painlately, enjoys taking care of horses when healthy. General Information Onset of Illness/Injury or Date of Surgery - Date 02/16/[address] Beebe Patient/Family Goals Statement Pt plans to d/c home with spouse and OP PT, I just want to walk again without pain Pertinent History of Current Problem Pt is POD #0 s/p R TKA, WBAT. Also had L knee steroid injection. Hx of L ankle achilles tendonitis, following with OP PT, meniscus repair L knee 09/28. PMH includingmeneire's syndrome. Precautions/Limitations fall precautions Weight-Bearing Status - LUE full weight-bearing Weight-Bearing Status - RUE full weight-bearing Weight-Bearing Status - LLE full weight-bearing Weight-Bearing Status - RLE weight-bearing as tolerated General Observations Pt resting in bed, agreeable to PT. Cognitive Status Examination Orientation orientation to person, place and time Level of Consciousness alert Follows Commands and Answers Questions 100% of the time Personal Safety and Judgment intact Memory intact Cognitive Comment Mild lethargy yet post op Pain Assessment Patient Currently in Pain Yes, see Vital Sign flowsheet (02/20) Integumentary/Edema Integumentary/Edema Comments post op dressing in place. Posture Posture Forward head position Range of Motion (ROM) ROM Comment LLE WFL, mild end range limitation with L knee flexion due to pain. Strength Strength Comments Indepw ith SLE on L, LLE WFL. R quad strength/control lacking, needs KI on when up, unable to isolate antigravity quad strength. Bed Mobility Bed Mobility Comments Mod A supine <> sit, limited by pain and weakness. Transfer Skills Transfer Comments Sit <> stand with mod A and FWW, KI donned, knee buckling with full WBAT. Gait Gait Comments Heavy knee buckling with attempted steps, FWW for support. Balance Balance Comments Impaired standing balance due to pain and weakness, needing FWW and KI currently. Sensory Examination Sensory Perception Comments Numbness yet R foot from block. Coordination Coordination no deficits were identified Muscle Tone Muscle Tone no deficits were identified Modality Interventions Planned Modality Interventions Cryotherapy Planned Modality Interventions Comments prn General Therapy Interventions Planned Therapy Interventions balance training;bed mobility training;gait training;neuromuscular re-education;ROM;strengthening;stretching;transfer training;risk factor education;home program guidelines;progressive activity/exercise Clinical Impression Criteria for Skilled Therapeutic Intervention yes, treatment indicated PT Diagnosis Impaired functional mobility APTA Preferred Practice Pattern musculoskeletal Influenced by the following impairments Pain, weakness, dec ROM, impaired balance Functional limitations due to impairments Impaired tolerance with functional transfers, gait, stairs Rehab Potential good, to achieve stated therapy goals Rehab potential affected by age, PLOF, motivation Therapy Frequency` 2 times/day Predicted Duration of Therapy Intervention (days/wks) 4 days Anticipated Equipment Needs at Discharge (FWW) Anticipated Discharge Disposition Home with Outpatient Therapy;Home with Assist Risk & Benefits of therapy have been explained Yes Patient, Family & other staff in agreement with plan of care Yes Clinical Impression Comments Pt is doing relatively well POD 0 s/p R TKA, WBAT. Requiring KI donned when OOB due to current quad weakness/limited control post op. Heavy knee buckling with full WBAT, pain rated 7/10, mild lethargy yet post op. Will benefit from skilled PT to improve strength, ROM, and mobiltiy tolerance. Total Evaluation Time Total Evaluation Time (Minutes) 15 Annamaria Deluna RN - 02/16/2015 3:00 PM CDT Arrived to room 620 from PACU at 1500 via bed, sleepy and oriented x 4, oriented to room and call system, Angel wrap to rle c,d,i band aid to left knee CDI . CMS intact, IV patent and infusing, gloria patent, rates pain 6/10, reviewed welcome folder and pain/medication information packet with patient. Serg ice chips well. Frequent VS started. documented in this encounter Consult Notes Mitch Florentino MD - 02/16/2015 5:39 PM CDTAssociated Order(s): HOSPITALIST IP CONSULT Images from the original note were not included. Hospitalist Consultation Tacho Glasgow Date of : 1955 Age: [age] year old Date of Admission: 02/16/2015 Requesting Physician: Dr Beebe Reason for consult: Medical Management and HTN Assessment and Plan: 60-year-old woman with history of hypertension admitted to the hospital after right total knee arthroplasty. 1. Right TKA on 02/16/2015 2. Hypertension 3. She is on hormone replacement therapy Continue atenolol and diuretic patient took her medication today her blood pressure is in the normalrange now Follow-up electrolyte IV fluids until she has normal oral intake, her preop labs are not included in the H&P so we will make sure she has electrolytes ordered for the morning Pain management and DVT prophylaxis per orthopedist Rita ordered, patient is on hormone replacement therapy so I would suggest DVT prophylaxis coverage for 4 weeks Full code Dispo possibly TCU Expected length of stay 3 nights History of Present Illness: This patient is a 60 year old female who presents with a history of right knee osteoarthritis and pain which has failed conservative management. She underwent total R knee arthroplasty today without any complication. When I saw the patient the pain was still reasonable, she was still probably under block. She denies any chest pain shortness of breath she denies any dizziness. She denies any nausea vomiting. She is a relatively healthy she has high blood pressure, and history of M??ni??re's disease with some hearing loss and tinnitus however no chronic dizziness. She denies any dyspnea on exertion any anginal symptom, she denies any bleeding blood in stool or black stool. She denies any urinary symptom orany skin rash. Past Medical History: Past Medical History Diagnosis Date ??? Hypertension ??? Sleep apnea No treatment at this time. ??? Arthritis ??? Other chronic pain Joint pain for 10 years. M??ni??re's disease Past Surgical History: Past Surgical History Procedure Laterality Date ??? Appendectomy ? ? Tonsillectomy & adenoidectomy ??? Lap adjustable gastric band Had band removed/ ??? Arthroscopy knee Bilateral Social History: She is , she has 2 kids, she is a schoolteacher She smoked in college for 2 year quit in the 70s Drinks alcohol on rare occasion denies any recreational drug use Family History: Both her father and her brother have problem with drugs and alcoholism Father has heart disease Maternal grandmother has diabetes Mother has hypertension and osteoporosis Allergies: No Known Allergies Medications: Prescriptions prior to admission Medication Sig Dispense Refill ??? mupirocin (BACTROBAN) 2 % nasal ointment Apply into each nare 2 times daily ??? ATENOLOL PO Take 50 mg by mouth daily ??? fluticasone (FLONASE) 50 MCG/ACT nasal spray Florence 2 sprays into both nostrils daily ??? TRIAMTERENE PO Take 25 mg by mouth daily ??? PROGESTERONE MICRONIZED PO Take 100 mg by mouth daily ??? BIESTROGEN,20-80, 5 MG/GM CREAM Apply topically 2 times daily Review of Systems: A comprehensive greater than 10 system review of systems was carried out. Pertinent positives and negatives are noted above. Otherwise negative for contributory info. Physical Exam: Vitals were reviewed Blood pressure 118/64, temperature 96.3 ??F (35.7 ??C), temperature source Oral, resp. rate 16, height 1.651 m (5' 5), weight 98.839 kg (217 lb 14.4 oz), SpO2 100 %. Exam: GENERAL: Comfortable. PSYCH: pleasant, oriented, No acute distress. EYES: PERRLA, Normal conjunctiva. HEART: Normal S1, S2 with no edema. LUNGS: Clear to auscultation, normal Respiratory effort. ABDOMEN: Soft, no hepatosplenomegaly, normal bowel sounds. SKIN: Dry to touch, No rash. Neuro: Non focal with normal motor power, sensation, CN's and Reflexes. Data: Labs pending documented in this encounter Nursing Notes Jodi Chan RN - 02/16/2015 9:24 AM CDT Completed a week of mupiricin, stopped showers early skin was getting red from soap documented in this encounter Miscellaneous Notes Plan of Care - Hilda Andrade RN - 02/20/2015 1:16 PM CDT Problem: Discharge Planning Goal: Discharge Planning (Adult, OB, Behavioral, Peds) SWS Discharge planning for return home. Outcome: Adequate for Discharge Date Met: 02/20/15 Reviewed discharge instructions and meds with pt. Pt requesting to have vistaril for home. notified and a script will be called to her [facility] pharmacy in [facility]. No further questions Plan of Care - Sarah Eric OT - 02/20/2015 10:07 AM CDT Problem: Goal Outcome Summary Goal: Goal Outcome Summary OT: Pt supine upon arrival. Pt able to come to EOB with min A to lift/guide R LE. Good sitting balance at EOB with set-up and min A. Sit<>stand and functional mobility to bathroom with CGA using FWW with cueing for safety, sequencing and proper hand placement. Toilet transfer completed with CGA using FWW and grab bar on L side. Grooming/hygiene at sink with set-up and SBA. Pt educated in EC/WS t echniques and home safety modifications. Anticipate D/C home later today. Given limited mobility andneed to climb 15 stairs, OT has issued a commode and long handled portrait artist to maximize safety/independence in ADLs. Recommend Home OT/PT upon D/C. Occupational Therapy Discharge Summary Reason for therapy discharge: Discharged to home with home therapy. Progress towards therapy goal(s). See goals on Care Plan in [facility] electronic health record for goal details. Goals partially met. Barriers to achieving goals: limited tolerance for therapy and discharge from facility. Therapy recommendation(s): Continued therapy is recommended. Rationale/Recommendations: Pt would benefit from continued OT to maximize safety and independence in ADLs and functional transfers using AE/DME. Plan of Care - Willi Bateman, PT - 02/20/2015 9:54 AM CDT Problem: Goal Outcome Summary Goal: Goal Outcome Summary PT- goals all met for bed mobility, transfers, stairs and gait. ROM 8-57 ( not met) plans to return home with continued PT services to maximize mobility and ROM. Issued RW for home use Physical Therapy Discharge Summary Reason for therapy discharge: Discharged to home with home therapy. Progress towards therapy goal(s). See goals on Care Plan in [facility] electronic health record for goal details. Goals partially met. Barriers to achieving goals: discharge from facility. Progressing well with IP PT, all goals met except ROM goal, lacking AAROM 8-57 deg yet. Plan to continue with PT. Therapy recommendation(s): Continued therapy is recommended. Rationale/Recommendations: Continue with PT to progress knee ROM, strength, and return to functional independence.. Pt not seen by discharging therapist, note written based on previous treating therapist's notes and recommendations. Plan of Care - Inge Mayfield RN - 02/20/2015 3:22 AM CDT Problem: Individualization Goal: Patient Preferences Outcome: Improving Pt alert and oriented. Calls for staff to help with needs. Able to get to side of bed Ind. Sba with ambulation to Br. C/o at 2, requested to be given tylenol only instead of narco. Notes head feeling fuzzy. Pharmacy split order and tyl given. Will continue to monitor. Plan of Care - Feroz Sequeira RN - 02/19/2015 11:20 PM CDT Problem: Goal Outcome Summary Goal: Goal Outcome Summary Outcome: Improving RN Pt continues to improve. Pain well managed with norco. Pt ambulating with sba with the walker. Pt planning to discharge to home tomorrow with spouse. Plan of Care - Pratibha Flores - 02/19/2015 3:42 PM CDT Problem: Discharge Planning Goal: Discharge Planning (Adult, OB, Behavioral, Peds) SWS Discharge planning for return home. Following for home care support Plan of Care - Yeni Cosme RN - 02/19/2015 2:00 PM CDT Problem: Goal Outcome Summary Goal: Goal Outcome Summary Outcome: Improving Superior cruddy this am with Nausea, pain and fatigue. 2 diff antiemetics were given, stayed on top ofPO pain meds (Racine and Vistaril) and this afternoon, pt stated feels much better. Voiding in good amts, CPM 0-40 tolerated well. Planning to dc to home with tomorrow Plan of Care - Sarah Eric OT - 02/19/2015 1:06 PM CDT Problem: Goal Outcome Summary Goal: Goal Outcome Summary OT: Pt supine upon arrival. Able to come to EOB with min A. Good sitting balance at EOB. Min A for sit<>stand using FWW with cueing for safety, sequencing and hand placement. Functional mobility to bathroom with min A using FWW. Pt with complaints of dizziness and nausea. OT provided education in safe technique for toilet and shower transfers. Toilet transfer completed with min A using FWW and grab bar on R side. Mod A for UE/LE dressing. Min A for shower transfer using FWW, built in seat and grab bars. Full body sponge bathing with min A. Pt up to chair following ADLs. Pt impulsive at times with decreased self/safety awareness. Needed frequent cues to move slowly and cautiously. OT recommendation continues to be for TCU, but Pt plans to D/C home. Plan of Care - Briana Michele FINANCIAL ANALYST ACCOUNTANT - 02/19/2015 10:19 AM CDT Problem: Goal Outcome Summary Goal: Goal Outcome Summary PT - Pt transfers sit to/from stand with SBA & min assist with R LE with sit to/from supine. Pt transfers chair to/from bed with use of ww with CGA. Pt amb 125' x 2 with ww with CGA. Pt performed 4steps with both rails with SBA and CGA - min assist with 1 rail. Pt reports she only has one rail @ home and notes more painful to perform with 1 rail here in PT. Recommend to have 2nd rail placed in stairway. Pt c/o increase pain today - notified nursing. Recommend home with home PT for safety eval. Plan of Care - Ni Platt RN - 02/19/2015 12:40 AM CDT Problem: Goal Outcome Summary Goal: Goal Outcome Summary Outcome: Improving Lo grade temp-lungs clear and denies urinary symptoms-strong enc to contnue with IS use-IS to 1000, no cough; strong enc to drink more fluids also; pt rated R anterior knee joint pain 4-6/10 with goal of 4/10-[id number] norco 2 tabs q4hr and vistaril 25mg tid prn; at 2300 pt with calllight on rating Rknee pain 5/10- requested dilaudid 4mg-to also assist with sleep; denies any further itch; voiding serg reg diet, +CMS/+PP; up with EA of 1 staff/walker and gait belt to amb length of gomez. Pts majority of discomfort this shift was per pt gas pain- new orders for simethicone and extra dose of senna administered as well as suppository with very large bm results-pt feeling much better Plan of Care - Yeni Cosme RN - 02/18/2015 1:56 PM CDT Problem: Goal Outcome Summary Goal: Goal Outcome Summary Outcome: Improving serg PO foods and fluids well, PO pain medications helping to manage pain, up with SBA with immobilizer and walker to bathroom voiding in good amts. Plans to dc to home Monday02/20/15 with assist of Plan of Care - Briana Michele PTA - 02/18/2015 11:50 AM CDT Problem: Goal Outcome Summary Goal: Goal Outcome Summary PT - Pt transfers supine to/from sit with min assist with R LE and SBA with sit to/from stand . Pt transfers bed to/from chair with use of ww with/without knee immob with CGA. Pt amb 125' x 2 with ww with / without knee immob. with CGA with step to pattern. Continue to recommend TCU. Plan of Care - Sarah Eric OT - 02/18/2015 8:54 AM CDT Problem: Goal Outcome Summary Goal: Goal Outcome Summary OT: Pt supine upon arrival. Dependent to joshua R KI. Supine>sit EOB with min A to lift/guide R LE.Good sitting balance at EOB. Sit<>stand and functional mobility to bathroom with CGA using FWW. OT provided education in safe technique for toilet transfer. Pt now able to complete with CGA usingFWW and grab bar on R side. She then stood at sink for grooming/hygiene with set-up and SBA. Pt up to chair for LE dressing with mod A using long handled portrait artist. Pt would like to D/C home with assist of . May need TCU secondary to need to climb 15 stairs. Plan to continue with current goals and POC. Plan of Care - Kalina Rdz RN - 02/18/2015 8:13 AM CDT Problem: Goal Outcome Summary Goal: Goal Outcome Summary Outcome: Improving vss po dilaudid given with good pain relief up with assist of 1 with knee imbolizer very painfull incpm only tolerating 0-30 Plan of Care - Kaylee Brumfield RN - 02/17/2015 11:11 PM CDT Problem: Individualization Goal: Patient Preferences Outcome: Improving VSS. CMS intact. Pain controlled with oxy and PO dilaudid.Suspecting allergy to oxy so held oxycontin. Redness and itching along arms, neck, and around eyes; reports groin area itching. Gave benadryl and vistaril, reported some relief from itching. Continuing gloria, adequate output. +flatus. Up with assist of 1, walked 30 feet with walker, immoblizer, and gait belt. Dressing CDI. Tolerated full liquid diet well. Immobilizer on in bed at HS. Provider Notification - Kaylee Brumfield RN - 02/17/2015 8:00 PM CDT 0800PM Called answering service for pain medication change as pt has itching uncontrolled with benadryl and vistaril. waiting for call back. 0855PM have not heard from Dr. Nelson. Re paged via answering service. 0900PM received call back from Dr. Nelson see MAR for order changes. Plan of Care - Sarah Eric OT - 02/17/2015 4:53 PM CDT Problem: Goal Outcome Summary Goal: Goal Outcome Summary OT: eval complete and treatment initiated. Pt reported to be independent in ADLs/IADLs and mobility while living in multi-level farmhouse with . Pt educated in role of OT, POC and possible AE needs for dressing, bathing and toileting. Supine>sit performed with min A and extra time. Good sitting balance at EOB with complaints of R LE pain. OT provided demonstration and instruction in use of AE for dressing. Pt now able to complete with mod A using portrait artist and sock aide. Sit<>stand andbed>w/c performed with min A using FWW with cueing for safety, sequencing and proper hand placement. Pt reported goal of returning home, but also reported to have 15 stairs to bed/bathroom with low toilet and claw foot tub. OT provided therapeutic listening and educated in concerns over Pt's ability to manage stairs and ADLs in a few days. Pt may need TCU upon D/C to maximize safety/independence prior to returning home. Plan of Care - Willi Bateman, PT - 02/17/2015 2:48 PM CDT Problem: Goal Outcome Summary Goal: Goal Outcome Summary PT: Pt making slow progress, but limited by pain rated up to 9/10 this afternoon with activity, nsg staff notified. Limited ROM this afternoon, 12-61 deg, heavy muscle guarding. Will likely benefit from CPM use. Min A with transfers, CGA ambulating with FWW, mod A with bed mobilities. May need to consider TCU at discharge, pending progress tomorrow. Plan of Care - Willi Bateman, PT - 02/17/2015 10:42 AM CDT Problem: Goal Outcome Summary Goal: Goal Outcome Summary PT: Pain rated 6/10 with activity, still buckling with gait, KI donned when up. Amb at bedside with FWW and min A, mild dizziness, BP and O2 stable. AAROM 12-81 deg, should emphasize knee extension stretch when resting. Recommend d/c home with spouse and OP PT. Pharmacy-Admission Medication History - Evelia Card [facility] - 02/17/2015 10:15 AM CDT Called pharmacy to clarify triamterene 25 mg med order. Patient is really on combo product Triamterene/HCTZ 37.5/25 Daily. MR list updated Plan of Care - Jacqui Hamilton RN - 02/17/2015 5:46 AM CDT Problem: Goal Outcome Summary Goal: Goal Outcome Summary Outcome: Improving POD# 0 Right TKA/Left steroid injection. Dressings CDI. Right leg angel wrapped with knee immobilizer on and ice. Currently denies pain. Scheduled oxycontin/tylenol. +BS, Reg Diet, denies N&V. Gloria - clear, stacey. SW, OT, PT following. Valuables in security lock nas per previous report. Plan for TCU for rehab upon discharge. Reviewed plan of care with patient at bedside. Plan of Care - Tracey Hernández RN - 02/17/2015 5:13 AM CDT Problem: Goal Outcome Summary Goal: Goal Outcome Summary Outcome: Improving Night RN Tom, LORE+ block wore off around 3am, pain back down to a 2 after oxycodone, doses of dilaludid and vistaril. Patient was taken out of her immobilizer per her request and put in cpm 0-50 which helped relieve her pain and spasms. No nausea tolerate crackers and water, diet advanced. No drain in place Slept between cares. Plan of Care - Willi Bateman, PT - 02/16/2015 6:17 PM CDT Problem: Goal Outcome Summary Goal: Goal Outcome Summary PT: Eval completed, treatment initiated. Pt is doing relatively well POD 0 s/p R TKA, WBAT. Requiring KI donned when OOB due to current quad weakness/limited control post op. Heavy knee buckling with full WBAT, pain rated 7/10, mild lethargy yet post op. Dangled at bedside, stood with FWW and KI, Ax1 with PT. Mild lightheadedness with standing skills. AAROM 11-80 deg. Anticipate ability to d/c home with spouse and OP PT, which is pt's plan. Will issue AD prior to d/c. Pharmacy-Admission Medication History - Gurmeet Stern RPH - 02/16/2015 3:04 PM CDT Admission medication history interview status for this patient is complete. See EPIC admission navigator for allergy information, prior to admission medications and immunization status. Medication history interview source(s):Patient,med rec completed by preadmitting RN. Medication history resources (including written lists, pill bottles, clinic record):None Primary pharmacy: Changes made to FINANCIAL ANALYST ACCOUNTANT medication list: Added: Deleted: Changed: Actions taken by pharmacist (provider contacted, etc):None Additional medication history information:None Medication reconciliation/reorder completed by provider prior to medication history? No Prior to Admission medications Medication Sig Last Dose Taking? Auth Provider mupirocin (BACTROBAN) 2 % nasal ointment Apply into each nare 2 times daily 02/16/2015 at 700 Yes Reported, Patient ATENOLOL PO Take 50 mg by mouth daily 02/16/2015 at 730 Yes Reported, Patient fluticasone (FLONASE) 50 MCG/ACT nasal spray [place] 2 sprays into both nostrils daily 02/15/2015 at 2200 Yes Reported, Patient TRIAMTERENE PO Take 25 mg by mouth daily 02/16/2015 at 730 Yes Reported, Patient PROGESTERONE MICRONIZED PO Take 100 mg by mouth daily Past Week at Unknown time Yes Reported, Patient BIESTROGEN,20-80, 5 MG/GM CREAM Apply topically 2 times daily 02/15/2015 at 900 Yes Reported, Patient Brief Op Note - Tanmay Beebe MD - 02/16/2015 12:29 PM CDT [facility] Brief Operative Note Pre-operative diagnosis: Right DJD Post-operative diagnosis same Procedure: Procedure(s): Right total knee arthroplasy, left knee steroid injection Surgeon(s): Surgeon(s) and Role: * Tanmay Beebe MD - Primary * Traci King PA-C - Assisting Estimated blood loss: 5 mL Specimens: * No specimens in log * Findings: See dictation Op Note - Tanmay Beebe MD - 02/16/2015 12:22 PM CDT PREOPERATIVE DIAGNOSES: 1. Right knee primary osteoarthritis. 2. Left knee primary osteoarthritis. POSTOPERATIVE DIAGNOSES: 1. Right knee primary osteoarthritis. 2. Left knee primary osteoarthritis. PROCEDURE: Right total knee arthroplasty using the Arthrex iBalance knee system and left knee intraarticular injection of steroid. SURGEON: Tanmay Beebe MD HAND POLISHER: Traci King PA-C INDICATIONS: Ms. Tacho Glasgow is a very pleasant 60-year-old female with a history of right knee osteoarthritis and pain which has failed conservative management. We had a long discussion of treatment options. Given her age, activity level and nature of this injury, I think she would benefit from a total knee arthroplasty. She understands the risks, benefits and alternatives and wishes to proceed with surgery. She also is having pain in her left knee due to osteoarthritis and wishes to proceed with a steroid injection. NARRATIVE OF EVENTS: After thorough preoperative evaluation and proper identification of patient's extremity to be operated on, Ms. Glasgow was taken to the operating room, where she underwent a general anesthetic and placed supine on the operating table, and her right and left legs were prepped and draped in the usual sterile manner. After appropriate surgical pause to confirm the patient's extremity to be operated on and 30 minutes after the patient received 2 grams of Ancef, her left knee was approached for an injection. Her left knee was prepped and draped in the usual sterile manner. She tolerated an intraarticular injection of steroids of 80 mg per mL Depo-Medrol as well as 5 mL of 0.25% Marcaine. She tolerated the injection without difficulty. At this point, we then paid our attention to her right knee, which was prepped and draped in the usual sterile manner. After appropriate surgical pause to confirm the patient, extremity to be operated on, and 30 minutes after patient received 2 grams of Ancef, her right leg was exsanguinated and tourniquet was raised to 300 mmHg on her right upper thigh. We approached her right knee through a midlineincision centered over the patella. Skin and soft tissue were sharply dissected down to the patella,where a medium parapatellar arthrotomy was performed. We performed a moderate medial release in accordance with our preoperative templating. We everted the patella, removed the infrapatellar fat pad, flexed the knee, removed the osteophytes from the distal femur, drilled and placed the intramedullary guide for our distal femoral resection. We resected the distal femur at 5 degrees physiologic valgus to the femur, resecting 9 mm of distal femoral bone. We then sized the distal femur. It sized to fit a size 6 Arthrex iBalance femoral component. We pinned our 4-in-1 cutting block in 3 degrees of external rotation in line with the epicondylar axis perpendicular to [facility] line. We made our anterior, posterior and chamfer resections. We then place our attention to the tibia. Here, we resected perpendicular to the long axis of the tibia using extramedullary guides. Once this was done, we then removed the excess soft tissue, mainly both cruciate ligaments and both menisci. We then made our box cutfor our femoral component on the femur and we then placed our trial implants into position. A size 6femur, a size 5 tibia, and an 8 mm thick polyethylene insert; this is a PS insert. This gave us goodstability and full range of motion. Our attention was then paid to the patella, which measured 23 mmin thickness prior to resection. We resected this done to 15 mm, placed an 8 mm thick x 30 mm in diameter round tri-peg patellar button in position. With patella and button in position, this tracked nicely and measured 23 mm in thickness. At this point, we then marked our tibial rotation. We punched for our tibial keel, thoroughly irrigated the knee and prepared to cement in our final components. Using one batch of Simplex cement with tobramycin, we cemented in a size 6 femur, a size 5 tibia and a 30 round tri-peg patellar button. Once the cement had cured, we removed the excess cement from the knee. We thoroughly irrigated the knee, both with saline and IrriSept solution 1 more time. At this point, we then retrialed our polyethylene inserts and found that an 8 mm thick insert gave us the best stability and full range of motion. This was impacted into position. We closed the arthrotomy with #1 and 0 Vicryl sutures. We placed one drain deep to the arthrotomy, closed the skin and soft tissue withabsorbable sutures and nilsa in the skin. The patient was placed in a well-padded postoperative dressing and taken to the recovery room in stable condition. She tolerated the procedure without difficulty. TANMAY BEEBE MD MT: [id number] Name: TACHO GLASGOW MRN: [id number] Account: [id number] : 1955 Procedure Date: 02/16/2015 Document: [id number] Plan of [facility] - Jenni Pettit RN - 02/11/2015 8:40 AM CDT Message left for patient and Dr Vega that pt tested positive for MSSA. Rx for mupirocin called to [facility] in [place] [phone]. Provider Notification - Roberta Heaton RN - 02/09/2015 8:54 AM CDT PT was scheduled for pre op class and Nasal Swab 02/05/2014 pt did not show up for class, have left three messages for pt to call and reschedule but have not heard back from pt. Will continue to try to reach pt, Surgeon notified. documented in this encounter Plan of Treatment Scheduled Referrals Name Type Priority Associated Diagnoses Order S chedule Home care PT referral Referral Routine Status post total r ight Ordered: 02/18/2015 knee replacement Home care OT referral Referral Routine Status post total r ight Ordered: 02/18/2015 knee replacement documented as of this encounter Procedures Procedure Name Priority Date/Time Associated Diagnosis Comme nts PLATELET COUNT Routine 02/19/2015 6:10 AM Status post total Re sults for this CDT right knee procedure are i n replacement the results section. HEMOGLOBIN Routine 02/18/2015 7:30 AM Status post total Resu lts for this CDT right knee procedure are i n replacement the results section. HEMOGLOBIN Routine 02/17/2015 6:20 AM Status post total Resu lts for this CDT right knee procedure are i n replacement the results section. BASIC METABOLIC Routine 02/17/2015 6:20 AM Status post total R esults for this PANEL CDT right knee procedure are i n replacement the results section. PLATELET COUNT Routine 02/16/2015 6:40 PM Status post total Re sults for this CDT right knee procedure are i n replacement the results section. CREATININE Routine 02/16/2015 6:40 PM Status post total Resu lts for this CDT right knee procedure are i n replacement the results section. XR POST OPERATIVE STAT 02/16/2015 12:57 Result s for this [facility] [place] PM CDT procedure ar e in the results section. INJECTION, STEROID 02/16/2015 9:54 AM Right DJD CDT Special Needs Class and Swab 02/05/2015 can e, 5'5, 220# STATED ARTHROPLASTY, KNEE, TOTAL 02/16/2015 9:54 AM CDT Right DJD Special Needs Class and Swab 02/05/2015 can e, 5'5, 220# STATED LAB RESULT - HIM SCAN 02/04/2015 12:00 AM CDT EKG CARDIAC - HIM SCAN 09/16/2014 12:00 AM CARD MAKER documented in this encounter Results Platelet count (02/19/2015 6:10 AM CDT) athologist Signature Platelet Count 197 150 - 450 [place] 10e9/L [facility] Specimen Anatomical Collection Method Collection Time Receive d Time (Source) Location / / Volume Laterality Blood specimen 02/19/2015 6:10 AM 015 6:11 (specimen) CDT AM CDT Tanmay Beebe MD LAB - BLOOD ORDERABLES Performing Organization Address City/State/ZIP Code Phon e Number [facility] [address], [place] [address] [place] [address] [address] [place] [address], [facility] [[email or web address]] [phone] (ABNORMAL) Hemoglobin (02/18/2015 7:30 AM CDT) athologist Signature Hemoglobin 9.9 (L) 11.7 - 15.7 [facility] g/dL [facility] Specimen Anatomical Collection Method Collection Time Receive d Time (Source) Location / / Volume Laterality Blood specimen 02/18/2015 7:30 AM 015 7:34 (specimen) CDT AM CDT Tanmay Beebe MD LAB - BLOOD ORDERABLES Performing Organization Address City/[facility]/ZIP [facility] Phon e Number [facility] [address], [place] [address] [facility] [address] [place], [place] [address] 7, [facility] [[email or web address]] [phone] (ABNORMAL) Basic metabolic panel (02/17/2015 6:20 AM CDT) Patholo gist Method Time Signature Sodium 138 133 - 144 [place] mmol/L [facility] Potassium 4.1 3.4 - 5.3 [place] mmol/L [facility] Chloride 105 94 - 109 [place] mmol/L [facility] Carbon Dioxide 27 20 - 32 [place] mmol/L [facility] Anion Gap 6 3 - 14 [place] mmol/L [facility] Glucose 129 (H) 70 - 99 [place] mg/dL [facility] Urea Nitrogen 13 7 - 30 [place] mg/dL [facility] Creatinine 0.63 0.52 - [facility] 1.04 [facility] mg/dL [facility] GFR Estimate >90 >60 [place] Non GFR Calc mL/min/1. [facility] 7m2 HOSPITAL GFR Estimate >90 >60 [place] If Black GFR Calc mL/min/1. [facility] 7m2 [facility] Calcium 7.9 (L) 8.5 - [place] 10.1 [facility] mg/dL HOSPITAL Specimen Anatomical Collection Method Collection Time Receive d Time (Source) Location / / Volume Laterality Blood specimen 02/17/2015 6:20 AM 015 6:22 (specimen) CDT AM CDT Mitch Florentino MD LAB - BLOOD ORDERABLES Performing Organization Address City/State/[facility] Code Phon e Number [facility] [address], [place] [address] [facility] [address] [phone] (ABNORMAL) Hemoglobin (02/17/2015 6:20 AM CDT) P athologist Signature Hemoglobin 9.8 (L) 11.7 - 15.7 [facility] g/dL [facility] Specimen Anatomical Collection Method Collection Time Receive d Time (Source) Location / / Volume Laterality Blood specimen 02/17/2015 6:20 AM 015 6:22 (specimen) CDT AM CDT Tanmay Beebe MD LAB - BLOOD ORDERABLES Performing Organization Address City/State/ZIP [facility] Phon e Number M [facility] [address] [place], [place] [address] [facility] [address] [facility] [place] [place] [address], [facility] [[email or web address]] [phone] Creatinine (02/16/2015 6:40 PM CDT) athologist Signature Creatinine 0.81 0.52 - 1.04 [place] mg/dL [facility] GFR Estimate 72 >60 [place] mL/min/1.7m [address] Comment: Non GFR Calc GFR Estimate If Black 87 >60 mL/min/1.7m2 F [facility] Comment: GFR Calc Specimen Anatomical Collection Method Collection Time Receive d Time (Source) Location / / Volume Laterality Blood specimen 02/16/2015 6:40 PM 015 6:44 (specimen) CDT PM CDT Tanmay Beebe MD LAB - BLOOD ORDERABLES Performing Organization Address City/State/ZIP Code Phon e Number M [facility] [address] [place] [address] [phone] [facility] [address] [place] [address], U [phone] Platelet count (02/16/2015 6:40 PM CDT) P athologist Signature Platelet Count 202 150 - 450 [place] 10e9/L [facility] Specimen Anatomical Collection Method Collection Time Receive d Time (Source) Location / / Volume Laterality Blood specimen 02/16/2015 6:40 PM 015 6:44 (specimen) CDT PM CDT Tanmay Beebe MD LAB - BLOOD ORDERABLES Performing Organization Address City/State/ZIP Code Phon e Number M [facility] [address] [place], [place] [address] [facility] [address] [place], [place] [address], [facility] [[email or web address]] [phone] XR Post Surgical Imaging (02/16/2015 12:57 PM CDT) Anatomical Region Laterality Modality Computed Radiography Specimen (Source) Anatomical Location Collection Method / Collectio n Time Received Time / Laterality Volume Impressions 02/16/2015 1:09 PM CDT IMPRESSION: Status post right total knee arthroplasty. Hardware is intact. Alignment is anatomic. TORITO SHI MD Narrative 02/16/2015 1:09 PM CDT XR POST SURGICAL IMAGING 02/16/2015 12:57 PM HISTORY: Postop. COMPARISON: None. Procedure Note Torito Shi MD - 02/16/2015 XR POST SURGICAL IMAGING 02/16/2015 12:57 PM HISTORY: Postop. COMPARISON: None. IMPRESSION IMPRESSION: Status post right total knee arthroplasty. Hardware is intact. Alignment is anatomic. TORITO SHI MD Tanmay Beebe MD IMG DIAGNOSTIC IMAGING ORDE RABLES LAB RESULT - HIM SCAN (02/04/2015 12:00 AM CDT) Specimen (Source) Anatomical Location Collection Method / Collectio n Time Received Time / Laterality Volume 02/04/2015 Narrative This result has an attachment that is no t available. Provider Outside NON-BEAKER LAB TESTING EKG CARDIAC - HIM SCAN (09/16/2014 12:00 AM CARD MAKER) Specimen (Source) Anatomical Location Collection Method / Collectio n Time Received Time / Laterality Volume 09/16/2014 Narrative This result has an attachment that is no t available. Provider Outside ECG ORDERABLES documented in this encounter Visit Diagnoses Not on filedocumented in this encounter Administered Medications Inactive Administered Medications - up to 3 most recent administrations Medication Order MAR Action Action Date Dose Rate Site BUPivacaine (MARCAINE) Given 02/16/2015 10:55 10 mLs Operative injection 0.5% PF AM CDT Site/Surgical S ite PRN, Starting on Mon02/16/15 at 1055, Intra-procedure chlorhexidine 0.05% in water for irrigation Given 01/2015 12:25 PM CDT 400 mLs (IRRESEPT) PRN, Starting on Mon02/16/15 at 1225, Intra-procedure methylprednisoLONE acetate Given 02/16/2015 10:54 AM 80 mg Operative Site/Surgical (DEPO-MEDROL) injection CDT Site PRN, Starting on Mon02/16/15 at 1054, Intra-procedure sodium chloride 0.9% (bag) irrigation Given 02/16/2015 12:25 PM CDT 2,000 mLs PRN, Starting on Mon02/16/15 at 1225, Intra-procedure documented in this encounter Active and Recently Administered Medications Times are shown in CDT. Scheduled Medication Order 02/18/2015 02/19/2015 02/20/2015 acetaminophen (TYLENOL) tablet 650 mg (CANCELED) 0624 (Given - Provider: Oliva Liu LPN) 650 mg, Oral, EVERY 6 HOURS, First dose on Mon02/16/15 at 1600, Maximum acetaminophen dose from all sources = 75 mg/kg/day not to exceed 4 grams/day., Post-procedure atenolol (TENORMIN) tablet 50 mg (CANCELED) 0931 (Give n - Provider: Yeni Cosme RN) 0908 (Given - Provider: Yeni oCsme RN) 0808 (Give n - Provider: Hilda Andrade RN) 50 mg, Oral, DAILY, First dose on 02/25 at 0800, For Adults, Hold if HR < 60., Post-procedure celecoxib (celeBREX) capsule 200 mg () 0932 (Gi eliana - Provider: Yeni Cosme RN) 200 mg, Oral, 2 TIMES DAILY, First dose on Mon02/16/15 at 2000, For 4 doses, For patients less than 65 years old. Do not give until Ketorolac dosing is complete or if ibuprofen ordered., Post-procedure enoxaparin (LOVENOX) injection 40 mg (CANCELED) 0931 ( Given - Provider: Yeni Cosme RN) 0907 (Given - Provider: Yeni Cosme RN) 0810 (Give n - Provider: Hilda Andrade RN) 40 mg, Subcutaneous, EVERY 24 HOURS, Fir st dose on Mon02/17/15 at 0630, Check to make sure start date/time is 12-24 hours post op unless documented complication, AND no sooner than 22 hours post op if sp inal anesthesia used. Continue until dis charge to home. HOLD if platelet count falls below 50% of baseline or less than 100,000/??L and notify provider., Post-procedure fluticasone (FLONASE) 50 MCG/ACT nasal spray 2 spray ( CANCELED) 0930 (Given - Provider: Yeni Cosme RN) 0907 (Given - Provider: Yeni Cosme RN) 0810 (Given - Provider: Hilda Andrade RN) 2 spray, Both Nostrils, DAILY, First dose on Mon 5 at 1600, Post-procedure ranitidine (ZANTAC) tablet 150 mg (CANCELED) 0932 (Giv en - Provider: Yeni Cosme RN)1958 (Given - Provider: Ni Platt, DAYANA) 0908 (Given - Provider: Yeni Cosme RN)2035 (Given - Provider: Feroz Sequeira RN) 0808 (Given - Provider: Hilda Andrade, DAYANA) 150 mg, Oral, 2 TIMES DAILY, First dose on Mon02/16/15 at 2000, P ost-procedure senna-docusate (SENOKOT-S;PERICOLACE) 8. 6-50 MG per tablet 1-2 tablet (CANCELED) 0932 (Given - Provider: Yeni Cosme RN)1610 (Given - Provider: Ni Platt RN)2024 (Given - Provider: Ni Platt RN) 0908 (Not Given - Provider: Yeni Cosme RN - Reason: Patient/family refused)1930 (Not Given - Provider: Feroz Sequeira RN - Reason: Patient/family refused) 0811 (Not Given - Provider: Hilda Andrade RN - Reason: Patient/family refused) 1-2 tablet, Oral, 2 TIMES DAILY, First d ose on Mon02/16/15 at 2000, Start with 1 tablet PO BID, If no bowel movement in 24 hours, increase to 2 tablets po BID. Hold for loose stools. Preferred agent for constipation related to opioids., Post-procedure sodium chloride (PF) 0.9% PF flush 3 mL (CANCELED) 022 0 (Given - Provider: Oliva Liu LPN)0934 (Given - Provider: Yeni Cosme RN)1608 (Given - Provider: Ni Platt RN) 3 mL, Intravenous, EVERY 8 HOURS, First dose on Mon02/16/15 at 1600, to lock peripheral IV dormant line. Also Ordered Q1H PRN, Post-procedure triamterene-hydrochlorothiazide (DYAZIDE ) 37.5-25 MG per capsule 1 capsule (CANCELED) 0933 (Given - Provider: Yeni Cosme RN) 0908 (Not Given - Provider: Yeni Cosme RN - Reason: Patient/family refused) 0811 (Not Given - Provider: Hilda Andrade RN - Reason: Patient/family refused) 1 capsule, Oral, DAILY, First dose on Mon02/17/15 at 1030, Post-p rocedure PRN Medication Order 02/18/2015 02/19/2015 02/20/2015 acetaminophen (TYLENOL) tablet 325-650 mg (CANCELED) 0029 (Given - Provider: Inge Mayfield RN) 325-650 mg, Oral, EVERY 4 HOURS PRN, mil d pain, fever, Starting Mon02/20/15 at 0022, Separation order from [place] as patient only request Tylenol at times. Maximum acetaminophen dose from all sources = 75 mg/kg/day not to exceed 4 grams/day. bisacodyl (DULCOLAX) suppository 10 mg (CANCELED) 2024 (Given - Provider: Ni Platt RN) 10 mg, Rectal, DAILY PRN, constipation, Starting Mon02/18/15 at 0000, Start POD #2, Post-procedure HYDROcodone-acetaminophen (NORCO) 5-325 MG per tablet 1-2 tablet (CANCELED) 0934 (Given - Provider: Yeni Cosme RN)1410 (Given - Provider: Dian Byers LPN)195 (Given - Provider: Ni Platt RN) 0340 (Given - Provider: Sheri See RN)0907 (Given - Provider: Yeni Cosme RN)1253 (Given - Provider: Yeni Cosme RN)1708 (Given - Provider: Feroz Sequeira, DAYANA)203 (Given - Provider: Feroz Sequeira RN) 0437 (Given - Provider: Debra Cervantes RN)0959 (Given - Provider: Alondra Andrade RN) 1-2 tablet, Oral, EVERY 4 HOURS PRN, mod erate to severe pain, Starting Mon02/18/15 at 0821, Maximum acetaminophen dose from all sources= 75 mg/kg/day not to exceed 4 grams HYDROmorphone (DILAUDID) tablet 2-4 mg (CANCELED) 0220 (Given - Provider: Oliva Liu LPN)0639 (Given - Provider: Oliva Liu LPN) 0013 (Given - Provider: April Guzman RN) 2-4 mg, Oral, EVERY 3 HOURS PRN, moderat e to severe pain, Starting Tu02/17/15 at 2103 hydrOXYzine (ATARAX) tablet 25 mg (CANCELED) 1608 (Giv en - Provider: Ni Platt, RN)1958 (Given - Provider: Ni Platt, RN) 000 (Given - Provider: Ni Platt, RN)0951 (Given - Provider: Yeni Cosme, DAYANA) 25 mg, Oral, 3 TIMES DAILY PRN, other, p ain, Starting 02/16/15 at 1557, Post-procedure ondansetron (ZOFRAN-ODT) disintegrating tablet 4 mg (CANCELE D) 749 (Given - Provider: Yeni Cosme, DAYANA) 4 mg, Oral, EVERY 6 HOURS PRN, nausea, S tarting 02/16/15 at 1557, This is Step 1 of nausea and vomiting management. If nausea not resolved in 15 minutes, go to Step 2 prochlorperazine (COMPAZINE). Do not push through foil backing. Peel back foil and gently remove. Place on tongue immediately. Administration with liquid unnecessary, Post-procedure prochlorperazine (COMPAZINE) tablet 5-10 mg (CANCELED) 51 (Given - Provider: Yeni Cosme RN) 5-10 mg, Oral, EVERY 6 HOURS PRN, nausea , vomiting, Starting 02/16/15 at 1557, This is Step 2 of the nausea and vomiting management. If nausea not resolved in 15 minutes, give metoclopramide (REGLAN), if ordered (step 3 of nausea and vomiting management), Post-pro cedure sennosides (SENOKOT) tablet 1 tablet (COMPLETED) 1958 (Given - Provider: Ni Platt, DAYANA) 1 tablet, Oral, ONCE PRN, constipation, Starting Mon at 1922, For 1 dose simethicone (MYLICON) chewable tablet 80 mg (CANCELED) 1958 (Given - Provider: Ni Platt, RN) 80 mg, Oral, EVERY 6 HOURS PRN, cramping, Starting Mon02/18/15 at 1920 documented in this encounter Care Teams Tail Worker Relationship Specialty Start Date End Date Denise Kwan PCP - General Nurse Practitioner 02/02/15 [facility] [place] [address] [place] [address] documented as of this encounter
--- OUTSIDE RECORDS SUMMARY | 2022-06-30 03:52 | XMS_ITS | Encounter Summary ---
:1955 Author Organization [facility] Address [address] [place] [address] Care Team Providers Name Role Phone Unavailable Primary Care Provider Unavailable Reason for Visit Reason Comments RASH Encounter Details Date Type Department Care Team Description 08/07/1996 Telephone Careline Yoselin Cabello RN RASH [address] [place], [place] [address] Social History Tobacco Use Types Packs/Day Years Used Date Smoking Tobacco: Never Assessed Sex Assigned at Date Recorded Not on file documented as of this encounter Nursing Notes 08/07/1996 11:59 PM DEMO COORDINATOR >> WASTE, YOSELIN D 08/07/96 03:[address] Harmon(fireperson) Instruct pt to stop Flagyl since on it for 7 days, May use topical Hydrocortisone and/or Benadryl PRN for itching(cautioned not to drive while taking Benadryl. FU with Ginna WALTERS regarding use of Flagyl >> CALL RECEIVED. Contact: [phone] self >> WASTE, YOSELIN D 08/07/96 02:36 pm awoke with itching this morning, thought possible flea bites Asking about possible allergic reaction on Metronidazole since 08/01 for bacterial vaginal infection. No fever/not sick Can I take the next dose? Has 3 tabs left. Pk Eren- documented in this encounter Plan of Treatment Not on filedocumented as of this encounter Visit Diagnoses Not on filedocumented in this encounter
--- OUTSIDE RECORDS SUMMARY | 2022-06-30 03:52 | XMS_ITS | Clinical Summary ---
:1955 Author Organization [facility] [place] [address] Care Team Providers Name Role Phone Staff, Other Clinical Unavailable Unavailable Kalina Savage MD Primary Care Provider Allergies Active Allergy Reactions Severity Noted Date Comments Metformin Itching 11/10/2020 Oxycodone Rash, Itching 05/27/2015 Medications Medication Sig Dispensed Refills Start Date End Date Status MULTIVITAMIN ORAL daily 0 Ac tive FISH OIL CAP daily 0 Active VITAMIN C ORAL take daily as 0 A ctive directed CALCIUM CHEW ORAL take daily as 0 Active directed CO Q-10 ORAL Take 1 tab daily 0 Active by mouth MEDICATION ORDER Bi-est, 0 Act víctor COMPOSER bioidentical estrogen cream applied daily. MEDICATION ORDER Progesterone 50 mg 0 Active COMPOSER sub lingual daily Cholecalciferol, Take by mouth. 0 02/03/2010 Active Vitamin D3, (VITAMIN 5,000 IU daily D) 5,000 unit TabIndications: Well female exam with routine gynecological exam b complex vitamins Take 1 capsule by 0 05/27/2015 Active (VITAMIN B COMPLEX) mouth once daily. capsule [id number] Take 2 tablets by 0 5 Active ia serr (OSTEO mouth once daily. BI-FLEX, 5-LOXIN,) 1,500-400-100 mg-unit-mg tab Progesterone, Bulk, 0 02/04/2019 Active 100 % powd medication order Diagnosis 1 unit 0 10/13/2020 Ac tive composerIndications: obstructive sleep Obstructive sleep apnea 12/10/2013 apnea AHi-12 stage dependent; MRD #1 acyclovir (ZOVIRAX) Take 1 Tablet (800 30 tablet. 3 03/18/2021 Active 800 mg mg) by mouth every tabletIndications: 8 hours. Oral herpes Insulin [place], Remove the 2 100 Each 0 03/19/2021 Active Disposable, (Comfort covers on the EZ Pen [place]) 31 insulin pen needle gauge x before 10/27Indications: administering Prediabetes, BMI dose. For victoza 36.0-36.9,adult dosing ivermectin Take 6 Tablets by 0 05/14/2021 Active (STROMECTOL) 3 mg mouth one time. tablet Once weekly omeprazole (PRILOSEC) TAKE ONE CAPSULE 90 Capsule 3 08/30/2021 Active 20 mg Delayed-Release BY MOUTH ONE TIME capsuleIndications: DAILY BEFORE MEALS Gastroesophageal reflux disease without esophagitis durable medical PLANTAR FASCIITIS 1 Each 0 09/28/2021 Active equipment [employer], (DME)Indications: MEDIUM, REF: Plantar fasciitis [phone] naproxen (NAPROSYN) Take 1 Tablet (500 60 Tablet 0 12/24/2021 Active 500 mg mg) by mouth 2 tabletIndications: times daily with Plantar fasciitis meals. atenoloL (TENORMIN) 50 Take 1 Tablet (50 90 Tablet 3 2 Active mg tabletIndications: mg) by mouth once Essential hypertension daily. with goal blood pressure less than 140/90 liraglutide (VICTOZA) Inject 0.6 mg 9 mL 3 02/10/2022 Active 0.6 mg/0.1 mL (18 mg/3 subcutaneous once mL) daily. injectionIndications: Prediabetes, BMI 36.0-36.9,adult triamterene-hydrochlor Take 1 Tablet by 90 Tablet 3 02/10/2022 Active othiazide, 37.5-25 mg, mouth every (MAXZIDE-25) 37.5-25 morning. mg tabletIndications: Essential hypertension with goal blood pressure less than 140/90 Insulin [place], For administering 50 Each 1 02/10/2022 Active Disposable, (Comfort victoza at home. EZ Pen [place]) 29 gauge x 1/2Indications: Prediabetes fluticasone (50 mcg Inhale 2 Sprays 48 g 3 02/10/2022 Active per actuation) nasal into affected solution nostril(s) 2 times (FLONASE)Indications: daily. Sleep apnea, unspecified type semaglutide (Ozempic) Inject 0.25 mg 3 mL 0 03/22/2022 Active 2 mg/1.5 mL (0.25mg or subcutaneous once 0.5mg doses) weekly. penIndications: Prediabetes, BMI 37.0-37.9, adult Active Problems Problem Noted Date Prediabetes 06/28/2019 History of colon polyps 02/10/2016 Overview: Colonoscopy 01/2016 polyps repeat in 5 ye ars Colonoscopy 10/2021 2-TA, SSA, repeat in 5 years Gastroesophageal reflux disease without esophagitis Overview: EGD 08/2015 Reactive gastropathy, try [place] toprazole twice a day DEREK 12/10/2013 AHI- 12, stage dependent 12/16/2013 Abdominal pain, epigastric 10/21/2011 Overview: EGD 10/2011 normal, s/p gastric band Oral herpes 01/21/2011 Meniere's syndrome 01/21/2011 Overview: Work up at [facility] with diagnosis pre Meni ere's Unspecified essential hypertension Unspecified sleep apnea Typhoid fever Resolved Problems Problem Noted Date Resolved Date Chronic bronchitis, unspecified chronic bronchitis type 01/1402/10/2022 Anxiety state, unspecified 07/06/2012 Trigeminal neuralgia 07/06/2012 Pure hyperglyceridemia 07/06/2012 Immunizations Name Administration Dates Next Due AMB Influenza, IIV3 (Age >=3 06/05/2012 years)(Flu Clinic Only) Hepatitis A (Adult) 05/24/2001, 04/10/2001 Hepatitis B (Adult) 09/11/2006, 05/24/2001, 04/10/2001 Influenza, High-dose Quadrivalent 04/15/2020 Inactivated Influenza, IIV3 (Age 6-35 mos) 05/20/2016, 06/27/2011 Influenza, IIV3 (Age >=3 years) 05/28/2016, 08/01/2015, 04/2013, 06/27/2011 Influenza, IIV4 05/19/2018, 05/10/2014 Influenza, IIV4 (=>6mos) V 05/11/2019, 04/29/2017 Influenza, Inactivated AIIV4 (Age 65+ 06/04/2021 Years) Preserv Free Pneumococcal Poly,23-Valent 09/25/2020 (Pneumovax) Tdap 03/07/2017, 09/11/2006 Zoster (Shingrix-RZV, recombinant) 03/13/2018, 12/10/2017 Zoster (Zostavax-ZVL, live) 03/09/2012 Family History Medical History Relation Name Comments Alcohol/Drug Brother 2 3 brothers alcoh ol recovering Heart Disease Father Other Father alcohol/drugs Diabetes Maternal Grandmother Hypertension Mother Osteoporosis Mother two fx Heart Disease Paternal Uncle 2 paternal uncle s with heart disease Osteoporosis Sister Cancer-breast No Family History Relation Name Status Comments Brother 1 Alive Brother 2 Father heart Maternal Grandmother Mother Alive Paternal Uncle Sister Alive Social History Tobacco Use Types Packs/Day Years Used Date Former Smoker Cigarettes 0.25 2 Quit: 08/14/18 78 Smokeless Tobacco: Never Used Tobacco Cessation: Counseling Given: Yes Comments: Quit age 23 Alcohol Use Standard Drinks/Week Comments Not Currently 0 (1 standard drink = 0.6 oz pure alcoho l) very rare Alcohol Habits Answer Date Recorded How often do you have a drink containing alcohol? Not asked How many drinks containing alcohol do you have on a typical Not asked day when you are drinking? How often do you have six or more drinks on one occasion? No t asked Comment: very rare 03/07/2017 Sex Assigned at Date Recorded Not on file Obstetrics History Para Term AB IAB SAB Ectopic Multiple Living Live Births 2 2 Date Outcome GA Total Labor/2nd/3rd Weight Sex Delivery Anes PTL Keeley A 1 A5 Name Clin Labor Last Filed Vital Signs Vital Sign Reading Time Taken Comments Blood Pressure 127/86 02/15/2022 2:54 PM CDT Pulse 77 02/15/2022 2:54 PM CDT Temperature 36.7 ??C (98 ??F) 10/07/2019 1:51 PM STRIP PRESSER Respiratory Rate 16 03/28/2017 9:36 AM CDT Oxygen Saturation 95% 02/15/2022 2:54 PM CDT Inhaled Oxygen Concentration - - Weight 99.5 kg (219 lb 4.8 oz) 02/15/2022 2:54 PM CDT Height 165.9 cm (5' 5.32) 02/10/2022 7:41 AM CDT Body Mass Index 36.14 02/10/2022 7:41 AM CDT Plan of Treatment Health Maintenance Due Date Last Done Comments COVID-19 vaccine series (#1) 1955 Medicare Wellness for age 65+ 01/19/2020 Pneumococcal series for age 65+ (2 09/25/2021 09/25/2020 - PCV) Influenza for age 65+ 04/14/2022 06/04/2021, 04/15/2020, 05/11/2019, Additional history exists Mammogram for age 45-75 02/02/2023 02/02/2022, 02/01/2021, 08/08/2019, Additional history exists BMI (ht and wt on same day) for 02/10/2023 02/10/2022, 09/14, age 18+ 06/28/2019, Additional history exists Depression screening for age 12+ 02/15/2023 02/15/2022, , 02/10/2022, Additional history exists Colonoscopy through age 75 10/14/2026 10/14/2021, , 10/14/2021, Additional history exists Lipids for age 45-75 02/10/2027 02/10/2022, 09/25/2020, 06/28/2019, Additional history exists Tetanus booster 03/07/2027 03/07/2017, 09/11/2006 Hepatitis C screening for age Completed 02/07/2014 18-79 Tdap Completed 03/07/2017, 09/11/2006 Zoster (shingles) series for age Completed 03/13/2018, , 50+ 03/09/2012 DEXA/DXA scan for age 65+ Completed 02/07/2022, 03/19/2018 , 02/08/2013, Additional history exists Medical Devices Implanted Type Area Patent Prosecution Attorney Device Shelf Model / Identifier Expiration Date Ser ial / Lot Adjustable Gastric Band Stomach [id number] / Implanted: Qty: 1 on 09/28/2007 at [facility] / Description: ADJUSTABLE GASTRIC BAND Results Not on filefrom Last 3 Months Insurance Payer Benefit Plan / Subscriber ID Effective Dates Phone Addre ss Type Group WC WORKERS [facility] [id number] 2020-Presen [address] [place] [address] [facility] MEDICARE [id number] 2020-Present [address] [place] [address] Betzaida Faust Workers Comp Self 1955 [id number] [place] (Home) [facility] [phone] [place], [place] (Work) [id number] Advance Directives Latest Code Status on File Code Status Date Activated Date Inactivated Comments Full Code 03/13/2012 2:22 PM 03/13/2012 11:14 PM Full Code 09/28/2007 7:13 AM 09/29/2007 2:24 PM Care Teams Credit Card Interviewer Relationship Specialty Start Date End Date Kalina Savage MD PCP - General Family Practice 09/25/20 [address] [place] [address] Staff, Other Clinical Dermatology 03/30/16 .
--- OUTSIDE RECORDS SUMMARY | 2022-06-30 03:52 | XMS_ITS | Encounter Summary ---
:1955 Author Organization [place] Address [address] [place] [address] Care Team Providers Name Role Phone YajairaJessejenlana Denise Primary Care Provider Encounter Details Date Type Department Care Team Description 02/09/2015 Orders Only [facility] [place] MD Pierre examination, [address] [facility] unspecified (Primary [place], [place] [facility] D[place]) [id number] [phone] [address] [place] [address] Social History Tobacco Use Types Packs/Day Years Used Date Smoking Tobacco: Never Smokeless Tobacco: Never Alcohol Use Standard Drinks/Week Comments Yes 0 (1 standard drink = 0.6 oz pure alcoho l) 1 drink monthly Sex Assigned at Date Recorded Not on file documented as of this encounter Plan of Treatment Not on filedocumented as of this encounter Results Methicillin Resistant Staph Aureus PCR (02/10/2015 8:20 AM CDT) Component Value Ref Test Analysis Performed At [facility] Range Method Time Signature Specimen Nares [facility] Methicillin Negative [facility] Resist/Sens S. MRSA Negative: SA Positive [place] [facility] aureus PCR MRSA target DNA not detected , presumed negative for MRSA colonization or the [facility] number of bacteria present may be below the limit of detect ion. BANK Staphylococcus aureus target DNA detected, presumed positive for SA colonization. A positive test does not nec essarily indicate the presence of viable organisms. It is, however, presumptive for the presence of SA. ??Thi s result does not preclude MRSA nasal colonization. FDA approved assay performed using [email or web address] GeneXpert(R) real -time PCR. Specimen Anatomical Collection Method Collection Time Receive d Time (Source) Location / / Volume Laterality 02/10/2015 8:20 AM 5 9:44 CDT AM CDT Tanmay Beebe MD LAB - MICRO GENERAL ORDERAB LES Performing Organization Address City/State/ZIP Code Phon e Number [address] [address] [facility] [address] [phone] documented in this encounter Visit Diagnoses Diagnosis Preoperative examination, unspecified - Primary documented in this encounter Care Teams Accredited Legal Secretary Relationship Specialty Start Date End Date Denise Kwan PCP - General Nurse Practitioner 02/02/15 [facility] [address] [place] [address] documented as of this encounter
--- OUTSIDE RECORDS SUMMARY | 2022-06-30 03:52 | XMS_ITS | Encounter Summary ---
:1955 Author Organization [place] Address [facility] [place] [address] Care Team Providers Name Role Phone Denise Kwan Primary Care Provider Reason for Visit Auth/Cert - Closed Specialty Diagnoses / Procedures Referred By Contact Refer red To Contact Surgery Diagnoses Right DJD Rh Periop Services Procedures ARTHROPLASTY KNEE INJECT STEROID (LOCATION) [address] [place], [place] [address] Phone: Fax: Referral ID Status Reason Start Date Expiration Date Visits Requ ested Visits Authorized [id number] Closed 1 1 Encounter Details Date Type Department Care Team Description 02/16/[address] [facility] Rolan Ladd MD [facility] ANESTHESIA [id number] [place], [place] [id number] PeriOp Services Apurva Eugene, [facility] ANESTHESIA [address] [place], [place] [id number] [address] [place] [address] Anesthesia Record Procedure Summary Procedure Name Responsible Anesthesia Start Anesthesia Stop Anesthesiologist Time Time Right total knee Rolan Ladd MD 02/16/15 1014 5 1230 arthroplasty using the Arthrex iBalance knee system and left knee intraarticular injection of steroid (Right: Knee) Events Date Time Event Comment 02/16/2015 0931 Non-OR Block Start Rolan Ladd 0940 Non-OR Block Stop Rolan Orozco rney 1014 An Start 1014 MD Present 1014 An Start Data 1017 An Induction 1017 AN START SEVO 1017 MD Present 1020 An Intubation 1020 MD Present 1041 MD Present 1042 An Tourn Inflated 1137 MD Present 1214 AN END SEVO 1218 An Tourn Deflated 1223 an stop data 1230 An Stop Electronically s igned by Apurva Eugene CRNA on February 16, 2015 1:3 4 PM Name Total midazolam 1mg/mL 2 mg bupivacaine 0.5% with EPINEPHrine 1:200,000 30 mL fentanyl 50mcg/mL 250 mcg lidocaine 1% 50 mg propofol 10mg/mL 150 mg rocuronium 10mg/mL 40 mg glycopyrrolate 0.2mg/mL 0.7 mg neostigmine 1mg/mL 3 mg dexamethasone 4mg/mL 4 mg ondansetron 2mg/mL 4 mg HYDROmorphone 1mg/ml 1 mg ePHEDrine 50mg/mL 5 mg tranexamic Acid (CYKLOKAPRON) 1 g in NaCl 0.9 % 50 mL bolus 1 g tranexamic Acid (CYKLOKAPRON) 1 g in NaCl 0.9 % 50 mL bolus 1 g ceFAZolin (ANCEF) 1 g vial to attach to NS 100 ml bag for ADULT or 50 ml bag 3 g for PEDS ketamine 100mg/mL 50 mg lactated ringers infusion 2,000 mL Agents Name O2 Air Exp Sevoflurane Blood No blood administrations on file. Lines, Drains, and Airways Type Details Placement Removal Incision/Surgical Site 02/16/15; 1057; Left; 02/16/15 1057 by Disha Almendarez RN Incision/Surgical Site 02/16/15; 1224; 02/16/15 1224 by Right; Knee Disha Stratton RN Urethral Catheter 02/16/15; No; 02/16/15 0000 by 02/18/15 0635 by /GI/COLLAR SHAPER OPERATOR Pelvic Disha Stratton Irene, RN Procedure, Marie, RN Anesthesia; 16 fr Peripheral IV 02/16/15; 0921; 18 G; 02/16/15 0921 by 02/18/15 2100 by Left; Hand Rolan Ladd Hillman, camilo Perez MD RN RETIRED ETT 02/16/15; 1020; Mask 02/16/15 1020 by 02/16/15 1 225 by Ventilation: Easy Apurva Eugene M, 4 H YOUTH DEVELOPMENT SPECIALIST Moises Eugene M, 4 H YOUTH DEVELOPMENT SPECIALIST with oral airway; BRIM PLATER BRIM PLATER Ease of Intubation: Easy; Airway Size: 7; Cuffed; Oral; Blade Type: Turk; Blade Size: 2; Place by: TM; Insertion Attempts: 1; Secured at (cm)to lip: 21 cm; Breath Sounds: Equal, clear and bilateral; End Tidal CO2: Present; Dentition: Intact; Grade View of Cords: 2 Closed/Suction Drain 02/16/15; 1200; 1; 02/16/15 1200 by 5 1223 by Right; Knee; Vesledahl, Disha Vesledahl, Disha Accordion; 10 DAYANA Benedict RN documented in this encounter Social History Tobacco Use Types Packs/Day Years Used Date Smoking Tobacco: Never Smokeless Tobacco: Never Alcohol Use Standard Drinks/Week Comments Yes 0 (1 standard drink = 0.6 oz pure alcoho l) 1 drink monthly Sex Assigned at Date Recorded Not on file documented as of this encounter OR Notes Anesthesia Postprocedure Evaluation - Rolan Ladd MD - 02/16/2015 2:23 PM CDT Patient: Betzaida Faust ARTHROPLASTY KNEE (Right Knee) INJECT STEROID (LOCATION) (Left Knee) Additional InformationProcedure(s): Right total knee arthroplasy, left knee steroid injection Diagnosis:Right DJD Diagnosis Additional Information: Right DJD Anesthesia Type: General, ETT, Peripheral Nerve Block for post-op pain at surgeon's request Note: Anesthesia Post Evaluation Patient location during evaluation: PACU Patient participation: Able to fully participate in evaluation Level of consciousness: awake Pain management: adequate Airway patency: patent Anesthetic complications: no Cardiovascular status: acceptable Respiratory status: acceptable Hydration status: acceptable PONV: controlled Last vitals: Filed Vitals: 02/16/15 1330 02/16/15 1340 02/16/15 1355 BP: 116/69 120/68 113/62 Temp: Resp: 12 12 12 SpO2: 100% 100% 100% Electronically Signed By: Rolan Ladd MD February 16, 2015 2:23 PM Anesthesia Procedure Notes - Rolan Ladd MD - 02/16/2015 9:44 AM CDT Associated Order(s): ANE PERIPHERAL/PARAVETEBRAL BLOCK Peripheral nerve/Neuraxial procedure note Pre-Procedure Performed by aimee. Referred by [facility] Procedure Times:02/16/2015 9:31 AM and 02/16/2015 9:40 AM. Location: OB. Pre-Anesthestic Checklist: patient identified, IV checked, site marked, risks and benefits discussed, informed consent, monitors and equipment checked, pre-op evaluation and at physician/surgeon's request Timeout Correct Patient: Yes Correct Procedure: Yes Correct Site: Yes Correct Laterality: Yes Correct Position: Yes Site Marked: Yes . Procedure Documentation . Procedure: right Femoral. Ultrasound used to identify targeted nerve, plexus, or vascular marker and placed a needle adjacent to it. . Patient Prep;povidone-iodine 7.5% surgical scrub. Nerve Stim: Initial Level 0.55 mA. Lowest motor response mA.. Needle: insulated (22 G. 2 in). . Spinal Needle: . . Insertion Method: Single Shot (incrmentally). Assessment/Narrative . The placement was negative for: blood aspirated, painful injection and site bleeding. . . Paresthesias: Resolved. . . Bolus given via.. Secured via. Complications: none. . . . Comments: The surgeon has given a verbal order transferring care of this patient to me for the performance of a regional analgesia block for post-op pain control. It is requested of me because I am uniquely trained and qualified to perform this block and the surgeon is neither trained nor qualified to perform this procedure. Anesthesia Preprocedure Evaluation - Rolan Ladd MD - 02/16/2015 9:10 AM CDT Anesthesia Evaluation . Pt has had prior anesthetic. Type: General No history of anesthetic complications ROS/MED HX ENT/Pulmonary: (+)sleep apnea, tobacco use, Past use doesn't use CPAP , . . (-) asthma, COPD and recent URI Neurologic: (+)other neuro Meniere's (-) seizures, CVA and TIA Cardiovascular: (+) Dyslipidemia, hypertension . : . . . :. . Previous cardiac testing date:results:date: results:ECG reviewed date:2014 results:NSR date: results: (-) CAD, arrhythmias and valvular problems/murmurs METS/Exercise Tolerance: Hematologic: Comments: Hgb 11.9 K 4.1 Cr 0.79 - neg hematologic ROS Musculoskeletal: (+) arthritis, - GI/Hepatic: - neg GI/hepatic ROS (-) GERD, hepatitis and liver disease Renal/Genitourinary: - ROS Renal section negative Endo: (+) Obesity, . (-) Type I DM, Type II DM, thyroid disease and chronic steroid usage Psychiatric: - neg psychiatric ROS Infectious Disease: - neg infectious disease ROS Malignancy: - no malignancy Other: (+) H/O Chronic Pain, Physical Exam Normal systems: cardiovascular, pulmonary and dental Airway Mallampati: III TM distance: >3 FB Neck ROM: full Dental Cardiovascular Rhythm and rate: regular and normal (-) no friction rub, no systolic click and no murmur Pulmonary breath sounds clear to auscultation(-) no rhonchi, no decreased breath sounds, no wheezes, no ralesand no stridor Anesthesia Plan ASA Score: 3 . Plan for General, ETT and Peripheral Nerve Block for post-op pain at surgeon's request - with Intravenous induction. Maintenance will be Balanced. Anesthetic plan, risks, benefits and alternatives discussed with: patient or sales representative. Routine analgesia and antiemetics History & Physical Review History and physical reviewed and following examination; no interval change. . documented in this encounter Miscellaneous Notes Anesthesia Care Transfer Note - Apurva Eugene APRN BRIM PLATER - 02/16/2015 1:33 PM CDT Patient: Betzaida Faust ARTHROPLASTY KNEE (Right Knee) INJECT STEROID (LOCATION) (Left Knee) Additional [email or web address] Diagnosis: Right DJD Diagnosis Additional Information: No value filed. Anesthesia Type: General, ETT, Peripheral Nerve Block for post-op pain at surgeon's request Note: Patient transferred to:PACU Electronically Signed By: Apurva Eugene CRNA, APRN CRNA February 16, 2015 1:33 PM documented in this encounter Plan of Treatment Not on filedocumented as of this encounter Procedures Procedure Name Priority Date/Time Associated Diagnosis Comme nts ANE Routine 02/16/2015 9:46 AM Results f or this PERIPHERAL/PARAVETE CDT procedur e are in BRAL BLOCK the results section. documented in this encounter Results Peripheral/Paravetebral Block (02/16/2015 9:46 AM CDT) Narrative Rolan Ladd MD - 02/16/2015 9:4 6 AM CDT Rolan Ladd MD ? 02/16/2015 ??9:46 AM Peripheral nerve/Neuraxial procedure not e Pre-Procedure Performed by ??aimee. Referred by [facility] Procedure Times:02/16/2015 9:31 AM and 02/16 9:40 AM. Location: OB. Pre-Anesthestic Checklist: patient ident ified, IV checked, site marked, risks and benefits discussed, in formed consent, monitors and equipment checked, pre-op evaluation and at physician/surgeon's request ?? Timeout Correct Patient: Yes Correct Procedure: Yes Correct Site: Yes Correct Laterality: Yes Correct Position: Yes Site Marked: Yes . ?? Procedure Documentation . ?? Procedure: ?? right Femoral. ?? Ultrasound used to identify targeted ner ve, plexus, or vascular marker and placed a needle adjacent to i t. . ?? Patient Prep;povidone-iodine 7.5% surgical scrub . ??Nerve Stim: Initial Level 0.55 mA. Lowest motor response mA. . ??Needle: insulated (22 G. 2 in). . ??Spinal Needle: . ??. ??Ins ertion Method: Single Shot (incrmentally). ?? Assessment/Narrative . ??The placement was negative for: bloo d aspirated, painful injection and site bleeding. ??. ??. ??P aresthesias: Resolved. . ??. ?? Bolus given via.. Secured via. Complications: none. ??. ??. ?? . ?? Com ments: ??The surgeon has given a verbal order transferring care of this patient to me for the performance of a regional analgesia bloc k for post-op pain control. It is requested of me because I am uniquely trained and qualified to perform this block and the surgeon is neither trained nor qualified to perform this pr ocedure. Rolan Ladd MD [place] ANESTH[facility]IA documented in this encounter Visit Diagnoses Not on filedocumented in this encounter Administered Medications Inactive Administered Medications - up to 3 most recent administrations Medication Order MAR Action Action Date Dose Rate Site bupivacaine 0.5 % - EPINEPHrine Given 02/16/2015 9:40 AM CDT 30 mLs 1:200,000 injection PRN, Starting on Mon02/16/15 at 0940, Anesthesia Intra-op ceFAZolin (ANCEF) 1 g vial to attach to NS 100 Given 0 02/16/2015 10:14 AM CDT 3 g ml bag for ADULT or 50 ml bag for PEDS Routine, 1 g, Intravenous, SEE ADMIN INSTRUCTIONS, Starting on Mon02/16/15 at 0854, Intra-Op Dose.?Give every 2 hours while patient in surgery, starting 2 hours after pre-op dose.?DO NOT GIVE intra-op dose if CrCl less than 10 mL/min (on dialysis).?If CrCL less than 50 mL/min, double the time interval between doses., Indications: Perioperative Pharmacoprophylaxis, Pre-procedure dexamethasone (DECADRON) injection Given 02/16/2015 10:17 AM CDT 4 mg PRN, Administer over 1-4 Minutes, Starting on Mon02/16/15 at 1017, Anesthesia Intra-op ePHEDrine injection Given 02/16/2015 10:50 AM CDT 5 mg PRN, Starting on Mon02/16/15 at 1050, Anesthesia Intra-op fentaNYL (SUBLIMAZE) injection Given 02/16/2015 12:28 PM CDT 50 mcg PRN, moderate to severe pain, Starting on Mon02/16/15 at 1017, Anesthesia Intra-op Given 02/16/2015 10:43 AM CDT 100 mcg Given 02/16/2015 10:17 AM CDT 100 mcg glycopyrrolate (ROBINUL) injection Given 02/16/2015 12:15 PM CDT 0.6 mg PRN, Starting on Mon02/16/15 at 1017, Anesthesia Intra-op Given 02/16/2015 10:17 AM CDT 0.1 mg HYDROmorphone (PF) (DILAUDID) injection Given 02/16/2015 12:47 PM CDT 0.5 mg PRN, moderate to severe pain, Starting on Mon02/16/15 at 1059, Anesthesia Intra-op Given 02/16/2015 10:59 AM CDT 1 mg ketamine (KETALAR) (high concentration) Given 02/16/2015 10:17 A M CDT 50 mg injection PRN, Starting on Mon02/16/15 at 1017, Anesthesia Intra-op lactated ringers infusion New Bag 02/16/2015 12:29 PM CDT at 75-100 mL/hr, Intravenous, CONTINUOUS, UNLESS otherwise indicated., Pre-procedure, Starting on Mon02/16/15 at 0900, Until Mon02/16/15 at 1226 New Bag 02/16/2015 10:47 AM CDT New Bag 02/16/2015 10:14 AM CDT lidocaine 1 % injection Given 02/16/2015 10:17 AM CDT 50 mg PRN, Starting on Mon02/16/15 at 1017, Anesthesia Intra-op midazolam (VERSED) injection Given 02/16/2015 9:31 AM CDT 2 mg PRN, anxiety, Starting on Mon02/16/15 at 0931, Anesthesia Intra-op neostigmine (PROSTIGMINE) injection Given 02/16/2015 12:15 PM CDT 3 mg Intravenous, PRN, Starting on Mon02/16/15 at 1215, Anesthesia Intra-op ondansetron (ZOFRAN) injection Given 02/16/2015 10:17 AM CDT 4 mg PRN, nausea, vomiting, Administer over 2-5 Minutes, Starting on Mon02/16/15 at 1017, Anesthesia Intra-op propofol (DIPRIVAN) injection 10 mg/mL v ial Given 02/16/2015 10:17 AM CDT 150 mg PRN, Starting on Mon02/16/15 at 1017, Anesthesia Intra-op rocuronium (ZEMURON) injection Given 02/16/2015 10:34 AM CDT 10 mg PRN, Starting on Mon02/16/15 at 1017, Anesthesia Intra-op Given 02/16/2015 10:17 AM CDT 30 mg tranexamic Acid (CYKLOKAPRON) 1 g in NaCl 0.9 New Bag 12:23 PM CDT 1 g % 50 mL bolus 1 g, Intravenous, ONCE, On Mon02/16/15 at 0900, For 1 dose, Each 1 gram to be infused over 10 minutes., Pre-procedure tranexamic Acid (CYKLOKAPRON) 1 g in NaCl 0.9 New Bag 10:23 AM CDT 1 g % 50 mL bolus 1 g, Intravenous, Administer over 10 Minutes, at 300 mL/hr, ONCE, On Mon02/16/15 at 0900, For 1 dose, Give at end of procedure/closure. Each 1 gram to be infused over 10 minutes., Pre-procedure documented in this encounter Care Teams Advertising Sales Agent Relationship Specialty Start Date End Date Denise Kwan PCP - General Nurse Practitioner 02/02/[address] [id number] documented as of this encounter
--- OUTSIDE RECORDS SUMMARY | 2022-06-30 03:52 | XMS_ITS | Encounter Summary ---
:1955 Author Organization [place] Address [address] [facility] [address] Care Team Providers Name Role Phone Denise Kwan Primary Care Provider Encounter Details Date Type Department Care Team Description 02/09/2015 Orders Only [facility] MD Pierre [address] [facility] [place] [address] [place], [place] [address] (Wo rk) Social History Tobacco Use Types Packs/Day Years [...] on filedocumented in this encounter Care Teams Rubber Tubing Splicer Relationship Specialty Start Date End Date Denise Kwan PCP - General Nurse Practitioner 02/02/15 [facility] [address] [place], [place] [id number] documented as of this encounter
--- OUTSIDE RECORDS SUMMARY | 2022-06-30 03:52 | XMS_ITS | Encounter Summary ---
:1955 Author Organization [place] Address [address] [facility] [place] [address] Care Team Providers Name Role Phone Unavailable Primary Care Provider Unavailable Encounter Details Date Type Department Care Team Description 07/26/2006 Results Only [facility] Carol Fernandez MD [facility] Radiology Results [place] [facility] [address] [place] [address] (Wo rk) Social History Tobacco Use Types Packs/Day Years Used Date Smoking Tobacco: Never Assessed Sex Assigned at Date Recorded Not on file documented as of this encounter Plan of Treatment Not on filedocumented as of this encounter Procedures Procedure Name Priority Date/Time Associated Diagnosis Comme nts X-RAY MASTOID Routine 07/26/2006 12:05 PM Resu lts for this COMPLETE, MIN 3 STORE RECEIVING CLERK procedure ar e in VIEWS/SIDE the results section. documented in this encounter Results X-RAY MASTOIDS 3+ VW (07/26/2006 12:05 PM STORE RECEIVING CLERK) Anatomical Region Laterality Modality Other Specimen (Source) Anatomical Collection Method Collection Time Re ceived Time Location / / Volume Laterality 07/26/2006 12:05 PM STORE RECEIVING CLERK Impressions 07/26/2006 4:42 PM STORE RECEIVING CLERK MASTOID G/E 3 VIEWS Jul 26, 2006 12:05:0 0 PM HISTORY: dizziness Negative Karson Fernandez MD GENERAL IMAGING documented in this encounter Visit Diagnoses Not on filedocumented in this encounter
--- OUTSIDE RECORDS SUMMARY | 2022-06-30 03:52 | XMS_ITS | Encounter Summary ---
:1955 Author Organization [place] Address Formerly [facility] [place] [address] Care Team Providers Name Role Phone Denise Kwan Primary Care Provider Reason for Referral Specialty Diagnoses / Procedures Referred By Contact Refer red To Contact Traci Mckeon PA- C [facility] [address] [facility] [address] [place], [place] [address] Referral ID Status Reason Start Date Expiration Date Visits Requ ested Visits Authorized [facility] Specialty Diagnoses / Procedures Referred By Contact Refer red To Contact Traci Mckeon PA- C [facility] [address] [place], [place] [address] Referral ID Status Reason Start Date Expiration Date Visits Requ ested Visits Authorized Reason for Visit Auth/Cert - Closed Specialty Diagnoses / Procedures Referred By Contact Refer red To Contact Surgery Diagnoses Right DJD Rh Periop Services Procedures ARTHROPLASTY KNEE INJECT STEROID (LOCATION) [address] [place], [place] [address] Phone: Fax: Referral ID Status Reason Start Date Expiration Date Visits Requ ested Visits Authorized [id number] Closed 1 1 Encounter Details Date Type Department Care Team Description 02/16/2015 - Hospital Encounter [facility] us post total 02/20/2015 [facility] Tanmay Jay, right knee [address] MD replacement (Primary [facility] Dx) [id number] ORTHOPEDICS [phone] [place] [address] Social History Tobacco Use Types Packs/Day Years Used Date Smoking Tobacco: Never Smokeless Tobacco: Never Alcohol Use Standard Drinks/Week Comments Yes 0 (1 standard drink = 0.6 oz pure alcoho l) 1 drink monthly Sex Assigned at Date Recorded Not on file documented as of this encounter Last Filed Vital Signs Vital Sign Reading Time Taken Comments Blood Pressure 148/80 02/20/2015 7:49 AM CDT Pulse - - Temperature 36.7 ??C (98.1 ??F) 02/20/2015 7:49 [...] 2 weeks from surgery. She may call [phone] to schedule an appointment. Discharge Instructions: Discharge [...] scrub. Meds: Tacho Glasgow Home Medication Instructions NEYMAR:[id number] Printed on:03/02/15 1711 Medication Information aspirin EC 325 MG tablet Take one Aspirin tab twice daily for 5 weeks. ATENOLOL PO Take 50 mg by mouth daily BIESTROGEN,20-80, 5 MG/GM CREAM Apply topically 2 times daily fluticasone (FLONASE) 50 MCG/ACT nasal spray Swiss 2 sprays into both nostrils daily HYDROcodone-acetaminophen [...] DME Equipment being ordered: commode, long handled gear design engineer Treatment Diagnosis: decreased ADL performance secondary to R TKA PROGESTERONE MICRONIZED PO Take 100 mg by mouth daily triamterene-hydrochlorothiazide (MAXZIDE-25) 37.5-25 MG per tablet Take 1 tablet by mouth daily Traci King PA-C O: [phone] documented in this encounter Discharge Instructions Discharge [...] to make a follow up apt. @ [facility] [phone] 10-14 days from the day of surgery Thank you for choosing [facility] documented in this encounter Medications at Time [...] 0 MG/GM CREAM daily fluticasone (FLONASE) 50 Swiss 2 sprays into 0 MCG/ACT nasal spray [...] for Equipment being ordered: commode, long handled gear design engineer 1 each 0 02/20/2015 DMEIndications: Status Treatment [...] with home therapy. Traci King PA-C O: [phone] ET Pratibha Flores - 02/19/2015 3:36 PM [...] has no preference. Made a referral to [facility]. Info was faxed to [facility] at [phone]. They will contact pt tomorrow for intake on Monday. P: No further SW needs at this time. Anticipate d/c tomorrow. Gurmeet Diggs MD - 02/19/2015 8:51 AM CDT [facility] Hospitalist Progress Note Patient Name: Tacho Glasgow [...] depending on physical therapy Tanmay Beebe MD [phone] Gurmeet Diggs MD - 02/18/2015 1:50 PM [...] at home evening. Traci King PA-C O: [phone] Sarah Eric OT - 02/17/2015 2:10 PM CDT 02/17/15 [...] reported decreased activity tolerance secondary to pain. Sock Liner Sock Liner Present no General Information Onset of Illness/Injury [...] Bed to Chair/Chair to Bed Level of [place]: Bed to Chair minimum assist (75% patients effort) Weight-Bearing Restrictions weight-bearing as tolerated Assistive Device - Transfer Skill Bed to Chair Chair to Bed Rehab Eval rolling walker Transfer Skill: Sit to Stand Level of [place]: Sit/Stand minimum assist (75% patients effort) Transfer Skill: Sit to Stand weight-bearing as tolerated Assistive Device for Transfer: Sit/Stand rolling walker Lower Body Dressing Level of [place]: Dress Lower Body maximum assist (25% patients effort) Physical Assist/Nonphysical Assist: Dress Lower Body set-up required Grooming Level of [place]: Grooming stand-by assist Physical Assist/Nonphysical Assist: Grooming set-up required Eating/Self Feeding Level of [place]: Eating independent Physical Assist/Nonphysical Assist: Eating set-up [...] with her in their multi-level home in [place], prior to surgery she had been independent [...] Diggs MD - 02/17/2015 9:31 AM CDT [facility] Hospitalist Progress Note Patient Name: Tacho Glasgow [...] Pain management Discharge planning Tanmay Beebe MD [phone] Willi Bateman, PT - 02/16/2015 6:08 PM CDT 02/16/15 1735 Quick Adds Type of Visit Initial PT [...] Time Total Evaluation Time (Minutes) 15 Annamaria Deluna, RN - 02/16/2015 3:00 PM CDT Arrived [...] ??? fluticasone (FLONASE) 50 MCG/ACT nasal spray Swiss 2 sprays into both nostrils daily ??? [...] a script will be called to her [facility] in [facility]. No further questions Plan of Care - Sarah Eric, OT - 02/20/2015 10:07 AM CDT Problem: [...] has issued a commode and long handled gear design engineer to maximize safety/independence in ADLs. Recommend Home OT/PT upon D/C. Occupational Therapy Discharge Summary Reason for therapy discharge: Discharged to home with home therapy. Progress towards therapy goal(s). See goals on Care Plan in [facility] electronic health record for goal details. [...] goal(s). See goals on Care Plan in [facility] electronic health record for goal details. [...] Summary Goal: Goal Outcome Summary Outcome: Improving [place] cruddy this am with Nausea, pain and fatigue. 2 diff antiemetics were given, stayed on top ofPO pain meds ([place] and Vistaril) and this afternoon, pt stated [...] home. Plan of Care - Briana Michele PTA - 02/19/2015 10:19 AM CDT Problem: Goal [...] knee joint pain 4-6/10 with goal of 4/10-stwa5byvzi norco 2 tabs q4hr and vistaril 25mg [...] dressing with mod A using long handled gear design engineer. Pt would like to D/C home with [...] diet well. Immobilizer on in bed at . Provider Notification - Kaylee Brumfield RN - [...] able to complete with mod A using gear design engineer and sock aide. Sit<>stand andbed>w/c performed with [...] PT. Pharmacy-Admission Medication History - Evelia Card [facility] - 02/17/2015 10:15 AM CDT Called pharmacy [...] Outcome Summary Outcome: Improving Night RN Tom, CMS+ block wore off around 3am, pain back [...] d/c. Pharmacy-Admission Medication History - Gurmeet Stern [facility] - 02/16/2015 3:04 PM CDT Admission medication history interview status for this patient is complete. See [facility] admission navigator for allergy information, prior to admission medications and immunization status. Medication history interview source(s):Patient,med rec completed by preadmitting RN. 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 SURGEON: Tanmay Beebe MD CRUCIBLE PACKER: Traci King PA-C INDICATIONS: Ms. Tacho Glasgow [...] line with the epicondylar axis perpendicular to Yamila's line. We made our anterior, posterior and [...] EM#[id number] Name: TACHO GLASGOW MRN: -[id number] Account: [id number] : 1955 Procedure Date: 02/16/2015 Document: [id number] Plan of Care - Jenni Pettit, DAYANA - 02/11/2015 8:40 AM CDT Message left for patient and Dr Vega that pt tested positive for MSSA. Rx for mupirocin called to [facility] in [place] [phone]. 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 documented in this encounter Results Platelet count (02/19/2015 6:10 AM CDT) athologist Signature Platelet Count 197 150 - 450 [place] 10e9/L [facility] Specimen Anatomical Collection Method Collection Time Receive d Time (Source) Location / / Volume Laterality Blood specimen 02/19/2015 6:10 AM 015 6:11 (specimen) CDT AM CDT Tanmay Beebe MD LAB - BLOOD ORDERABLES Performing Organization Address City/[facility]/ZIP Code Phon e Number M [facility] [address] [place], [place] [address] [place] [address] [phone] (ABNORMAL) Hemoglobin (02/18/2015 7:30 AM CDT) athologist Signature Hemoglobin 9.9 (L) 11.7 - 15.7 [place] g/dL [facility] Specimen Anatomical Collection Method Collection Time Receive d Time (Source) Location / / Volume Laterality Blood specimen 02/18/2015 7:30 AM 015 7:34 (specimen) CDT AM CDT Tamnay Beebe MD LAB - BLOOD ORDERABLES Performing Organization Address City/[facility]/ZIP Code Phon e Number M [facility] [address] [place], [place] [address] M [facility] [address] [place], [place] [address] [facility] [phone] (ABNORMAL) Basic metabolic panel (02/17/2015 6:20 AM CDT) Patholo gist Method Time Signature Sodium 138 133 - 144 [place] mmol/L [facility] Potassium 4.1 3.4 - 5.3 [place] mmol/L [facility] Chloride 105 94 - 109 [place] mmol/L [facility] Carbon Dioxide 27 20 - 32 [place] mmol/L [facility] Anion Gap 6 3 - 14 [place] mmol/L [facility] Glucose 129 (H) 70 - 99 [place] mg/dL [facility] Urea Nitrogen 13 7 - 30 [place] mg/dL [facility] Creatinine 0.63 0.52 - [place] 1.04 [facility] mg/dL [facility] GFR Estimate >90 >60 [place] Non GFR Calc mL/min/1. [facility] 7m2 [facility] GFR Estimate >90 >60 [place] If Black GFR Calc mL/min/1. [facility] 7m2 [facility] Calcium 7.9 (L) 8.5 - [place] 10.1 [facility] mg/dL HOSPITAL Specimen Anatomical Collection Method Collection Time Receive d Time (Source) Location / / Volume Laterality Blood specimen 02/17/2015 6:20 AM 015 6:22 (specimen) CDT AM CDT Mitch Florentino MD LAB - BLOOD ORDERABLES Performing Organization Address City/State/ZIP Code Phon e Number M [facility] [address] [place], [place] [address] M [facility] [address] [place] [address] [facility] [phone] (ABNORMAL) Hemoglobin (02/17/2015 6:20 AM CDT) P athologist Signature Hemoglobin 9.8 (L) 11.7 - 15.7 [facility] g/dL [facility] Specimen Anatomical Collection Method Collection Time Receive d Time (Source) Location / / Volume Laterality Blood specimen 02/17/2015 6:20 AM 015 6:22 (specimen) CDT AM CDT Tanmay Beebe MD LAB - BLOOD ORDERABLES Performing Organization Address City/State/ZIP Code Phon e Number M [facility] [address] [place] [address] [facility] [address] [place], [place] [address], [facility] [phone] Creatinine (02/16/2015 6:40 PM CDT) P athologist Signature Creatinine 0.81 0.52 - 1.04 [place] mg/dL [facility] GFR Estimate 72 >60 [place] mL/min/1.7m [address] Comment: Non GFR Calc GFR Estimate If Black 87 >60 mL/min/1.7m2 F [facility] Comment: GFR Calc Specimen Anatomical Collection Method Collection Time Receive d Time (Source) Location / / Volume Laterality Blood specimen 02/16/2015 6:40 PM 015 6:44 (specimen) CDT PM CDT Tanmay Beebe MD LAB - BLOOD ORDERABLES Performing Organization Address City/State/ZIP Code Phon e Number M [facility] [address] [place] [address] [facility] [address] [place] [address], [facility] [phone] Platelet count (02/16/2015 6:40 PM CDT) P athologist Signature Platelet Count 202 150 - 450 [place] 10e9/L [facility] Specimen Anatomical Collection Method Collection Time Receive d Time (Source) Location / / Volume Laterality Blood specimen 02/16/2015 6:40 PM 015 6:44 (specimen) CDT PM CDT Tanmay Beebe MD LAB - BLOOD ORDERABLES Performing Organization Address City/State/ZIP Code Phon e Number M [facility] [address] [place], [place] [address] [facility] [address] [place], [place] [address], [facility] [phone] XR Post Surgical Imaging (02/16/2015 12:57 PM [...] 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 Provider Outside ECG ORDERABLES documented in this encounter Visit Diagnoses Diagnosis Status post total right knee replacement - Primary S/P total knee replacement Knee joint replacement by other means documented in this encounter Administered Medications Inactive Administered Medications - up to 3 most recent administrations Medication Order MAR Action Action Date Dose Rate Site 0.9% sodium chloride BOLUS New Bag 02/16/2015 4:45 PM CDT 1,000 mLs 500 mL/hr Intravenous, 1,000 mL, ONCE, at 500 mL/hr, Administer over 2 Hours, On Mon02/16/15 at 1600, For 1 dose, Give over 2 hours as soon as pt arrives on floor, Post-procedure 0.9% sodium chloride Rate/Dose Verify 02/16/2015 9:47 PM 1,000 mLs 1 25 mL/hr infusion CDT at 125 mL/hr, Intravenous, CONTINUOUS, Change to saline lock when PO well tolerated., Post-procedure, Starting on Mon02/16/15 at 1600, Until Mon02/18/15 at 0925 New Bag 02/16/2015 7:52 PM CDT 1,000 mLs 125 mL/hr acetaminophen (OFIRMEV) 10 mg/mL Given 02/16/2015 1:00 PM CD T 1,000 mg 400 mL/hr infusion 1,000 mg 1,000 mg, Intravenous, at 400 mL/hr, ONCE, Administer over 15 Minutes, On Mon02/16/15 at 1315, For 1 dose, Maximum dose of acetaminophen is 4000 mg from all sources., PACU acetaminophen (TYLENOL) tablet 325-650 m g Given 02/20/2015 12:29 AM CDT 650 mg 325-650 mg, Oral, EVERY 4 HOURS PRN, mild pain, fever, Starting on Mon02/20/15 at 0022, Separation order from [place] as patient only request Tylenol at times. Maximum acetaminophen dose from all sources = 75 mg/kg/day not to exceed 4 grams/day. acetaminophen (TYLENOL) tablet 650 mg Given 02/18/2015 6:24 AM CDT 650 mg 650 mg, Oral, EVERY 6 HOURS, First dose on Mon02/16/15 at 1600, Maximum acetaminophen dose from all sources = 75 mg/kg/day not to exceed 4 grams/day., Post-procedure Given 02/17/2015 11:11 PM CDT 650 mg Given 02/17/2015 4:21 PM CDT 650 mg atenolol (TENORMIN) tablet 50 mg Given 02/20/2015 8:08 AM CDT 50 mg 50 mg, Oral, DAILY, First dose on Mon02/17/15 at 0800, For Adults, Hold if HR < 60., Post-procedure Given 02/19/2015 9:08 AM CDT 50 mg Given 02/18/2015 9:31 AM CDT 50 mg bisacodyl (DULCOLAX) suppository 10 mg Given 02/18/2015 8:25 PM CDT 10 mg 10 mg, Rectal, DAILY PRN, constipation, Starting on Mon02/18/15 at 0000, Start POD #2, Post-procedure ceFAZolin (ANCEF) intermittent New Bag 02/17/2015 2:10 AM CDT 2 g 200 mL/hr infusion 2 g (pre-mix) Routine, 2 g, Intravenous, EVERY 8 HOURS, First dose on Mon02/16/15 at 1800, For 2 doses, First post-op dose due 8 hours after intra-op dose, see eMAR., Indications: Perioperative Pharmacoprophylaxis, Post-procedure New Bag 02/16/2015 7:49 PM CDT 2 g 200 mL/hr celecoxib (celeBREX) capsule 200 mg Given 02/18/2015 9:32 AM CDT 200 mg 200 mg, Oral, 2 TIMES DAILY, First dose on Mon02/16/15 at 2000, For 4 doses, For patients less than 65 years old. Do not give until Ketorolac dosing is complete or if ibuprofen ordered., Post-procedure Given 02/17/2015 7:30 PM CDT 200 mg Given 02/17/2015 7:57 AM CDT 200 mg celecoxib (celeBREX) capsule 400 mg Given 02/16/2015 9:17 AM CDT 400 mg 400 mg, Oral, ONCE, On Mon02/16/15 at 0900, For 1 dose, Pre-procedure diphenhydrAMINE (BENADRYL) capsule 25-50 mg Given 02/17/2015 4:25 PM CDT 25 mg 25-50 mg, Oral, EVERY 6 HOURS PRN, itching, Starting on Mon02/17/15 at 1539 Given 02/17/2015 4:21 PM CDT 25 mg enoxaparin (LOVENOX) injection 40 mg Given 02/20/2015 8:10 AM CDT 40 mg 40 mg, Subcutaneous, EVERY 24 HOURS, First dose on Mon02/17/15 at 0630, Check to make sure start date/time is 12-24 hours post op unless documented complication, AND no sooner than 22 hours post op if spinal anesthesia used. Continue until discharge to home. HOLD if platelet count falls below 50% of baseline or less than 100,000/??L and notify provider., Post-procedure Given 02/19/2015 9:07 AM CDT 40 mg Given 02/18/2015 9:31 AM CDT 40 mg fentaNYL (SUBLIMAZE) injection 25-50 mcg Given 02/16/2015 2:21 PM CDT 50 mcg 25-50 mcg, Intravenous, EVERY 2 MIN PRN, other, acute pain, Starting on Mon02/16/15 at 1237, MAX cumulative dose = 250 mcg. Use Fentanyl initially, as a short acting agent for acute pain control. If insufficient, or a longer acting agent is needed, begin Morphine or Hydromorphone if ordered., PACU Given 02/16/2015 1:08 PM CDT 50 mcg Given 02/16/2015 12:47 PM CDT 50 mcg fluticasone (FLONASE) 50 MCG/ACT nasal Given 02/20/2015 8:10 AM CDT 2 sprays spray 2 spray 2 spray, Both Nostrils, DAILY, First dose on Mon02/16/15 at 1600, Post-procedure Given 02/19/2015 9:07 AM CDT 2 sprays Given 02/18/2015 9:30 AM CDT 2 sprays gabapentin (NEURONTIN) tablet 600 mg Given 02/16/2015 9:16 AM CDT 600 mg 600 mg, Oral, ONCE, On Mon02/16/15 at 0900, For 1 dose, Pre-procedure HYDROcodone-acetaminophen (NORCO) 5-325 MG Given 02/20 9:59 AM CDT 2 tablets per tablet 1-2 tablet 1-2 tablet, Oral, EVERY 4 HOURS PRN, moderate to severe pain, Starting on Mon02/18/15 at 0821, Maximum acetaminophen dose from all sources= 75 mg/kg/day not to exceed 4 grams Given 02/20/2015 4:37 AM CDT 2 tablets Given 02/19/2015 8:36 PM CDT 2 tablets HYDROmorphone (DILAUDID) injection 0.2 m g Given 02/17/2015 7:38 PM CDT 0.2 mg 0.2 mg, Intravenous, EVERY 30 MIN PRN, moderate to severe pain, Starting on Mon02/16/15 at 1557, Post-procedure Given 02/17/2015 2:57 PM CDT 0.2 mg Given 02/17/2015 7:40 AM CDT 0.2 mg HYDROmorphone (DILAUDID) tablet 2-4 mg Given 02/19/2015 12:13 AM CDT 2 mg 2-4 mg, Oral, EVERY 3 HOURS PRN, moderate to severe pain, Starting on Mon02/17/15 at 2103 Given 02/18/2015 6:39 AM CDT 2 mg Given 02/18/2015 2:20 AM CDT 2 mg HYDROmorphone (PF) (DILAUDID) injection Given 02/16/2015 2:22 PM CDT 0.5 mg 0.3-0.5 mg 0.3-0.5 mg, Intravenous, EVERY 5 MIN PRN, moderate to severe pain, acute pain. May administer if RR is > 10 , Starting on Mon02/16/15 at 1237, If fentanyl is also ordered, use HYDROmorphone if pain control insufficient with fentanyl or a longer acting agent is needed. Max cumulative dose = 2 mg, PACU Given 02/16/2015 1:08 PM CDT 0.5 mg HYDROmorphone (PF) (DILAUDID) injection Given 02/16/2015 12:47 PM CDT 0.5 mg PRN, moderate to severe pain, Starting on Mon02/16/15 at 1059, Anesthesia Intra-op Given 02/16/2015 10:59 AM CDT 1 mg hydrOXYzine (ATARAX) tablet 25 mg Given 02/16/2015 9:16 AM CDT 25 mg 25 mg, Oral, ONCE, On Mon02/16/15 at 0900, For 1 dose, Pre-procedure hydrOXYzine (ATARAX) tablet 25 mg Given 02/19/2015 9:51 AM CDT 25 mg 25 mg, Oral, 3 TIMES DAILY PRN, other, pain, Starting on Mon02/16/15 at 1557, Post-procedure Given 02/19/2015 12:09 AM CDT 25 mg Given 02/18/2015 7:59 PM CDT 25 mg magnesium hydroxide (MILK OF MAGNESIA) Given 02/17/2015 11:11 PM CDT 30 mLs suspension 30 mL 30 mL, Oral, AT BEDTIME, First dose on Mon02/16/15 at 2200, Hold for loose stools, Post-procedure Given 02/16/2015 10:16 PM CDT 30 mLs ondansetron (ZOFRAN) injection 4 mg Given 02/16/2015 10:16 PM CDT 4 mg 4 mg, Intravenous, EVERY 6 HOURS PRN, nausea, vomiting, Administer over 2-5 Minutes, Starting on Mon02/16/15 at 1557, This is Step 1 of nausea and vomiting management. If nausea not resolved in 15 minutes, go to Step 2 prochlorperazine (COMPAZINE)., Post-procedure ondansetron (ZOFRAN) injection 4 mg Given 02/17/2015 4:20 AM CDT 4 mg 4 mg, Intravenous, EVERY 6 HOURS, Administer over 2-5 Minutes, First dose on Mon02/16/15 at 1600, For 4 doses, Post-procedure Given 02/16/2015 10:17 PM CDT 4 mg ondansetron (ZOFRAN-ODT) disintegrating tablet Given 0 02/19/2015 7:50 AM CDT 4 mg 4 mg 4 mg, Oral, EVERY 6 HOURS PRN, nausea, Starting on Mon02/16/15 at 1557, This is Step 1 of nausea and vomiting management. If nausea not resolved in 15 minutes, go to Step 2 prochlorperazine (COMPAZINE). Do not push through foil backing. Peel back foil and gently remove. Place on tongue immediately. Administration with liquid unnecessary, Post-procedure oxyCODONE (OxyCONTIN) 12 hr tablet 10 mg Given 02/16/2015 9:16 AM CDT 10 mg 10 mg, Oral, ONCE, On Mon02/16/15 at 0900, For 1 dose, DO NOT CRUSH., Pre-procedure oxyCODONE (OxyCONTIN) 12 hr tablet 10 mg Given 02/17/2015 7:57 AM CDT 10 mg 10 mg, Oral, EVERY 12 HOURS, First dose on Mon02/16/15 at 2100, DO NOT CRUSH., Post-procedure Given 02/16/2015 7:51 PM CDT 10 mg oxyCODONE (ROXICODONE) immediate release tablet Given 02/17/2015 6:00 PM CDT 5 mg 5-10 mg 5-10 mg, Oral, EVERY 3 HOURS PRN, moderate to severe pain, Starting on Mon02/16/15 at 1557, Post-procedure Given 02/17/2015 12:19 PM CDT 10 mg Given 02/17/2015 9:22 AM CDT 10 mg pantoprazole (PROTONIX) EC tablet 40 mg Given 02/16/2015 9:16 AM CDT 40 mg 40 mg, Oral, ONCE, On Mon02/16/15 at 0900, For 1 dose, Pre-procedure prochlorperazine (COMPAZINE) tablet 5-10 mg Given 02/19/2015 9:51 AM CDT 5 mg 5-10 mg, Oral, EVERY 6 HOURS PRN, nausea, vomiting, Starting on Mon02/16/15 at 1557, This is Step 2 of the nausea and vomiting management. If nausea not resolved in 15 minutes, give metoclopramide (REGLAN), if ordered (step 3 of nausea and vomiting management), Post-procedure ranitidine (ZANTAC) tablet 150 mg Given 02/20/2015 8:08 AM CDT 150 mg 150 mg, Oral, 2 TIMES DAILY, First dose on Mon02/16/15 at 2000, Post-procedure Given 02/19/2015 8:36 PM CDT 150 mg Given 02/19/2015 9:08 AM CDT 150 mg senna-docusate (SENOKOT-S;PERICOLACE) Given 02/18/2015 8:25 PM C DT 2 tablets 8.6-50 MG per tablet 1-2 tablet 1-2 tablet, Oral, 2 TIMES DAILY, First dose on Mon02/16/15 at 2000, Start with 1 tablet PO BID, If no bowel movement in 24 hours, increase to 2 tablets po BID. Hold for loose stools. Preferred agent for constipation related to opioids., Post-procedure Given 02/18/2015 4:10 PM CDT 2 tablets Given 02/18/2015 9:32 AM CDT 2 tablets sennosides (SENOKOT) tablet 1 tablet Given 02/18/2015 7:59 PM CDT 1 tablet 1 tablet, Oral, ONCE PRN, constipation, Starting on Mon02/18/15 at 1922, For 1 dose simethicone (MYLICON) chewable tablet 80 mg Given 02/18/2015 7:59 PM CDT 80 mg 80 mg, Oral, EVERY 6 HOURS PRN, cramping, Starting on Mon02/18/15 at 1920 sodium chloride (PF) 0.9% PF flush 3 mL Given 02/18/2015 4:08 PM CDT 3 mLs 3 mL, Intravenous, EVERY 8 HOURS, First dose on Mon02/16/15 at 1600, to lock peripheral IV dormant line. Also Ordered Q1H PRN, Post-procedure Given 02/18/2015 9:34 AM CDT 3 mLs Given 02/18/2015 2:20 AM CDT 3 mLs triamterene-hydrochlorothiazide (DYAZIDE) Given 02/18/2015 9 :33 AM CDT 1 tablet 37.5-25 MG per capsule 1 capsule 1 capsule, Oral, DAILY, First dose (after last reorder) on Mon02/17/15 at 1030, Post-procedure Given 02/17/2015 2:59 PM CDT 1 capsule documented in this encounter Active and Recently [...] Cosme RN) 0908 (Given - Provider: Yeni Cosme RN) 0808 (Give n - Provider: Hilda [...] Cosme RN) 0907 (Given - Provider: Yeni Cosme, RN) 0810 (Give n - Provider: Hilda [...] Cosme RN) 0810 (Given - Provider: Hilda Andrade, DAYANA) 2 spray, Both Nostrils, DAILY, First dose on Mon 5 at 1600, Post-procedure ranitidine (ZANTAC) tablet 150 mg (CANCELED) 0932 (Giv en - Provider: Yeni Cosme RN)1958 (Given - Provider: Ni Platt RN) 0908 (Given - Provider: Yeni Cosme RN)2035 (Given - Provider: Feroz Sequeira RN) 0808 (Given - Provider: Hilda Andrade, DAYANA) 150 mg, Oral, 2 TIMES DAILY, First dose on Mon02/16/15 at 1999, P ost-procedure senna-docusate (SENOKOT-S;PERICOLACE) 8. 6-50 MG per tablet 1-2 tablet (CANCELED) 0932 (Given - Provider: Yeni Cosme RN)1610 (Given - Provider: Ni Platt, DAYANA)2024 (Given - Provider: Ni Platt RN) 0908 (Not Given - Provider: Yeni Cosme RN - Reason: Patient/family refused)193 (Not Given - Provider: Feroz Sequeira RN - Reason: Patient/family refused) 0811 (Not Given - Provider: Hilda Andrade RN - Reason: Patient/family refused) 1-2 tablet, Oral, 2 TIMES DAILY, First d ose on Mon02/16/15 at 1999, Start with 1 tablet PO BID, If [...] 02/20/2015 acetaminophen (TYLENOL) tablet 325-650 mg (CANCELED) 002 (Given - Provider: Inge Mayfield RN) 325-650 mg, Oral, EVERY 4 HOURS PRN, mil d pain, fever, Starting Mon02/20/15 at 0022, Separation order from [place] as patient only request Tylenol at times. [...] Yeni Cosme RN)1708 (Given - Provider: Feroz Seqeuira, DAYANA)203 (Given - Provider: Feroz Sequeira, DAYANA) 0437 (Given - Provider: Debra Cervantes, DAYANA)0959 (Given - Provider: Alondra Andrade RN) 1-2 [...] PRN, moderat e to severe pain, Starting Mon02/17/15 at 2103 hydrOXYzine (ATARAX) tablet 25 mg (CANCELED) 1608 (Giv en - Provider: Ni Platt, RN)1958 (Given - Provider: Ni Platt, DAYANA) 000 (Given - Provider: Ni Platt, RN)0951 (Given - Provider: Yeni Cosme, RN) 25 mg, Oral, 3 TIMES DAILY PRN, other, p ain, Starting Mon02/16/15 at 1557, Post-procedure ondansetron (ZOFRAN-ODT) disintegrating tablet 4 mg (CANCELE D) 0750 (Given - Provider: Yeni Cosme, RN) 4 mg, Oral, EVERY 6 HOURS PRN, nausea, S tarting 02/16/15 at 1557, This is Step 1 of nausea and vomiting management. If nausea not resolved in 15 minutes, go to Step 2 prochlorperazine (COMPAZINE). Do not push through foil backing. Peel back foil and gently remove. Place on tongue immediately. Administration with liquid unnecessary, Post-procedure prochlorperazine (COMPAZINE) tablet 5-10 mg (CANCELED) 0951 (Given - Provider: Yeni Cosme, RN) 5-10 mg, Oral, EVERY 6 HOURS PRN, nausea , vomiting, Starting 02/16/15 at 1557, This is Step 2 of the nausea and vomiting management. If nausea not resolved in 15 minutes, give metoclopramide (REGLAN), if ordered (step 3 of nausea and vomiting management), Post-pro cedure sennosides (SENOKOT) tablet 1 tablet (COMPLETED) 1958 (Given - Provider: Ni Platt, RN) 1 tablet, Oral, ONCE PRN, constipation, Starting Mon at 1922, For 1 dose simethicone (MYLICON) chewable tablet 80 mg (CANCELED) 1958 (Given - Provider: Ni Platt, RN) 80 mg, Oral, EVERY 6 HOURS PRN, cramping, Starting Mon02/18/15 at 1920 documented in this encounter Care Teams Infection Control Specialist Relationship Specialty Start Date End Date Denise Kwan PCP - General Nurse Practitioner 02/02/15 [facility] [address] [place] [address] documented as of this encounter
--- OUTSIDE RECORDS SUMMARY | 2022-06-30 03:52 | XMS_ITS | Encounter Summary ---
:1955 Author Organization [facility] Address [address], [place] [address] Care Team Providers Name Role Phone Unassigned, Provider Primary Care Provider Unavailable Encounter Details Date Type Department Care Team Description 01/02/1996 PN Conversion Only SPIRITISM CONVERSION Guillermo Peterson Social History Tobacco Use Types Packs/Day Years Used Date Smoking Tobacco: Never Assessed Sex Assigned at Date Recorded Not on file documented as of this encounter Plan of Treatment Not on filedocumented as of this encounter Procedures Procedure Name Priority Date/Time Associated Comments Diagnosis CONVERSION DEFAULT Routine 01/02/1996 3:40 PM Res ults for this INTERFACE ORDER CDT procedure ar e in the results section. CONVERSION DEFAULT Routine 01/02/1996 3:40 PM Res ults for this INTERFACE ORDER CDT procedure ar e in the results section. documented in this encounter Results (ABNORMAL) Conversion Default Interface Order (01/02/1996 3:40 PM CDT) [facility] gist Method Time Signature Lab Glucose 95 60 HP CONVERSION 110MG/D L Blood Urea 17 5 26MG/D HP CONVERSION Nitrogen L Creatinine Serum 0.7 0.5 HP CONVERSION 1.5MG/D L Bun/Creatinine 24.3 (HH) 10.0 20.0 HP CONVERSION Ratio Sodium 142 137 HP CONVERSION 147MEQ/ L Potassium 4.0 3.5 HP CONVERSION 5.2MEQ/ L Chloride 100 98 HP CONVERSION 108MEQ/ L Bicarbonate 26 23 33MMOL HP CONVERSION /L Calcium 9.0 8.5 HP CONVERSION 10.5MG/D L Phosphorus Serum 4.0 2.5 HP CONVERSION 4.5MG/D L Cholesterol 206 (HH) 125 HP CONVERSION 199MG/D L Comment: NCEP guidelines for blood Total Cholest manuel: ? <200 mg/dl ? Desirable tot al cholesterol. ? 200-239 mg/dl ?Borderline - h igh risk for coronary heart disease. ? 240 and over ? High risk for coronary heart disease. Triglycerides 332 (HH) 30 250MG/D L HP CONVERSION Cholesterol/Triglycerides Ratio 0.6 HP CONVERSION Protein Total, Serum 7.0 5.7 8.3GM/D L HP CO NVERSION Albumin 3.9 3.0 5.0G/DL HP CONVERSION Globulin Serum 3.1 1.8 3.9GM/D L HP CONVERSI ON Alk Phos 50 30 115U/L HP CONVERSION Bilirubin Total 0.4 0.2 1.2MG/D L HP CONVERS ION Gamma-Glutamyl Transferase 13 0 65U/L HP CONVERSION Aspartate Aminotransferase 18 0 45U/L HP CONVERSION Lactic Acid Dehydrogenase 128 80 225U/L HP C ONVERSION Creatine Kinase 128 0 225U/L HP CONVERSION Uric Acid Serum 2.9 2.0 7.2MG/D L HP CONVERS ION Iron, Serum 40 40 150UG/M L HP CONVERSION Specimen (Source) Anatomical Collection Method Collection Time Re ceived Time Location / / Volume Laterality 01/02/1996 3:40 PM CDT Genaro Peterson LAB_1 Performing Organization Address City/State/ZIP Code Phon e Number HP CONVERSION Conversion Default Interface Order (01/02/1996 3:40 PM CDT) P athologist Signature Thyroid 0.53 0.40 HP CONVERSION Stimulating 5.00uIU/ Hormone ML Specimen (Source) Anatomical Collection Method Collection Time Re ceived Time Location / / Volume Laterality 01/02/1996 3:40 PM CDT Genaro Peterson LAB_1 Performing Organization Address City/[facility]/ZIP Code Phon e Number HP CONVERSION documented in this encounter Visit Diagnoses Not on filedocumented in this encounter Care Teams Gaming Associate Relationship Specialty Start Date End Date Unassigned, Provider PCP - General 10/15/00 03/07/18 [address] [place] [address] documented as of this encounter
--- OUTSIDE RECORDS SUMMARY | 2022-06-30 03:52 | XMS_ITS | Encounter Summary ---
:1955 Author Organization [email or web address] Address [address] [place] [address] Care Team Providers Name Role Phone Unassigned, Provider Primary Care Provider Unavailable Reason for Visit Reason Onset Date Comments EAR,PLUGGED 04/08/2006 Encounter Details Date Type Department Care Team Description 04/08/2006 Telephone CareEwelina Hazel RN EAR,PLUGGED [address] AFTER HOURS [facility] - [place], [place] [address] [address] [phone] [address] [place], [place] [address] Social History Tobacco Use Types Packs/Day Years Used Date Smoking Tobacco: Never Assessed Sex Assigned at Date Recorded Not on file documented as of this encounter Nursing Notes 04/08/2006 11:59 PM CDT >> EWELINA MCGOWAN Sat Apr 08, 2006 8:35 AM Pt. is seen at [facility] in [place]. MD there said the ear drum looked swollen- this was 2 months ago-has not been seen since. Pt. talked with her MD after that and was told to see ENT. Pt. has had fluid in her inner ear for 2 months=has been on decongestants-pt. can't get in to ENT ti l . No ear pain-has sloshing of water in the right ear. No head congestion. No fever. States her hearing is muffled the past 3-4 days. No ear drainage. Pt.has been holding her nose and blowing and then the ear does open and her hearing returns. Pt. does this 3-4x per day. Pt. feels fine. She has been taking Mucinex and a decongestant for 6 weeks with no relief of symptoms. TRIAGE REFERENCE: EAR PAIN - ADULT CNG (c) 2003 STAT SYMPTOMS: None per guideline ASSESSMENT: Intensity: no ear pain, ear congestion: yes. Aggravating event: . Drainage: No. Fever: no. Hearing disturbance: yes-see above. PMH: hypertension. Pt. is asking how she can see ENT over the weekend or if there is an ENT clinic that she can get int o earlier. PLAN: Advised pt. that she would have to go to an [facility]. care or ER for ear exam today and Monday. Ifshdeepak has ear pain, drainage, fever, new symptoms then she should be seen. Otherwise advised pt. to call the ENT clinic she has appt. with and ask about an earlier appt.-or sh e can call other ENT offices to see if she can get an earlier appt. Pt. understands and agrees with the plan. Ewelina Mcgowan RN documented in this encounter Plan of Treatment Not on filedocumented as of this encounter Visit Diagnoses Not on filedocumented in this encounter Care Teams Assistant Spa Director Relationship Specialty Start Date End Date Unassigned, Provider PCP - General 10/15/00 03/07/[address] [place] [address] documented as of this encounter
--- OUTSIDE RECORDS SUMMARY | 2022-06-30 03:52 | XMS_ITS | Encounter Summary ---
:1955 Author Organization [employer] Address [address], [place] [address] Care Team Providers Name Role Phone Denise Kwan APRN, MACRINA Primary Care Provider Unavail able Reason for Visit Reason Comments WART Encounter Details Date Type Department Care Team Description 03/08/2018 Initial Consult [place] Tanmay Uribe (P rimary Dx); Dermatology MD Pam Seborrheic keratosis; [address] [place] [address] [facility] [phone] [place], [place] [id number] Social History Tobacco Use Types Packs/Day Years Used Date Smoking Tobacco: Never Smokeless Tobacco: Never Sex Assigned at Date Recorded Not on file documented as of this encounter Progress Notes Tanmay Uribe MD - 03/08/2018 12:00 PM CDT NAME: TACHO GLASGOW MR#: [id number] CSN: [id number] AUTHENTICATING CLINICIAN: Tanmay Uribe MD CONFIRM #: [id number] LOC: 527 CLINIC PROGRESS NOTE DATE OF VISIT: 03/08/2018 : 1955 [facility] NEW PATIENT VISIT NOTE CHIEF COMPLAINT: Warts on the bottom of the feet. HISTORY OF PRESENT ILLNESS: Tacho is a 63-year-old female who is a new patient to Dermatology Clinic. She has an issue with tender bumps on the bottom of the left foot. These started this past summer. She has been doing some morewalking to try and lose weight. She has had the same tennis shoes for about 6 months. She also notesa bump on the left elbow and wonders if this is a wart. She has a new brown spot on the left shoulder. It is asymptomatic. She has no personal history of skin cancer. She does wear sunscreen and sun protection. She is otherwise well without further skin complaints. FAMILY HISTORY: Melanoma in her brother. OBJECTIVE: GENERAL: Pleasant and cooperative, no acute distress. SKIN: Examination of the face, neck, left shoulder, left elbow and feet reveals the following. On the left shoulder, there is a brown, keratotic, 6 mm stuck-on papule with cerebriform surface on dermoscopy consistent with seborrheic keratosis. She has photodamage over the face and neck. On the left plantar foot on the mid tarsal aspect, she has 4 roughly 2 mm keratotic papules. Upon paring witha 15 blade, a smooth compact keratin is noted. On the left elbow, there is a skin-colored, keratotic stuck-on papule cerebriform surface on dermoscopy. ASSESSMENT AND PLAN: 1. Photodamage. Sun protection and sunscreen recommended. Skin cancer awareness reviewed. 2. Seborrheic keratosis on the left shoulder and left elbow: Reassurance provided. 3. Clavi on the left plantar foot: Clinical impression reviewed. No evidence of wart virus today. Recommended getting a gel insert for her shoes. We also discussed purchasing alternative footwear that have more cushion. We discussed the use of corn pads to try and offload pressure. To remove the keratotic skin, she will try salicylic acid 60% compounded with Aquaphor ointment nightly. 4. Return to clinic will be as needed. 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
--- OUTSIDE RECORDS SUMMARY | 2022-06-30 03:52 | XMS_ITS | Clinical Summary ---
:1955 Author Organization [facility] Address [address] [place] [address] Care Team Providers Name Role Phone Denise Kwan APRN, MACRINA Primary Care Provider Unavail able Source Comments You are receiving this document as you are listed as the primary care provider,follow-up provider, or the patient has been referred to you for consultation.This is in compliance with the Medicare and Medicaid EHR Incentive Program,which states Providers who transition their patient to another setting of careor provider of care or refers their patient to another provider of care shouldprovide summarycare record for each transition of care or referral. [facility] Allergies No known active allergies Medications Medication Sig Dispensed Refills Start Date End Date Status atenolol (TENORMIN) 50 Take 50 mg by 0 Active MG tablet mouth daily. Active Problems No known active problems Social History Tobacco Use Types Packs/Day Years Used Date Smoking Tobacco: Never Smokeless Tobacco: Never Sex Assigned at Date Recorded Not on file Plan of Treatment Health Maintenance Due Date Last Done Comments Colon Cancer Screening Plan 1955 Due Hep C Screening (Preventive 1955 Services) Mammogram 1955 COVID-19 Vaccine (#1) 1955 Adult Preventive Visit 1973 Cholesterol 01/19/2000 Pneumococcal 65+ Yrs (2 - 09/25/2021 09/25/2020 PCV) Influenza (#1) 2022 04/15/2020, 04/29/2017, 05/28/2016, Additional history exists DTaP/Tdap/Td (3 - Tdap) 03/07/2027 03/07/2017, 09/11/2006 HepA Aged Out 05/24/2001, 04/10/2001 No longer eligible based on patient 's age to complete this topic Zoster/Shingles Completed 03/13/2018, 12/10/2017, 03/09/2012 HepB Aged Out No longer eligib le based on patient 's age to complete this topic Hib Aged Out No longer eligib le based on patient 's age to complete this topic IPV (Polio) Aged Out No longer eligib le based on patient 's age to complete this topic MCV4 Aged Out No longer eligib le based on patient 's age to complete this topic Insurance Payer Benefit Plan / Subscriber ID Effective Phone Address T ype Group Dates PREFERREDONE PREFERREDONE [id number] 2018-Pres [phone] OPEN ACCESS ent [id number] [place] [address] (Work) [id number] [address] Personal/Family Self 10/26/1952 [address] [phone] [place], [place] (Work) [address] Care Teams Tonguer Relationship Specialty Start Date End Date Denise Kwan, ROUTE DELIVERY CLERK, FLAT LOCKER PCP - General Nurse Practitioner
--- OUTSIDE RECORDS SUMMARY | 2022-06-30 03:52 | XMS_ITS ---
:1955 Author Care Team Providers Name Role Phone DR. MIKE GARCIA MD Primary Care Provider [phone] DR. EVE BURLESON MD Referring Provider [phone] Allergies Code Code System Name Reaction Severity Status Onset 7805 RxNorm Oxycodone ? ? Active ? Medications Name Status Start Date Stop Date ? ? atenolol 50 mg tablet Active ? Not availa ble TAKE ONE TABLET BY MOUTH ONE TIME DAILY estriol micronized (bulk) 100 % powder Active ? Not available fluticasone propionate 50 mcg/actuation nasal spray,suspension A ctive ? Not available Inhale 1 [place] in the nostril(s) once daily gabapentin 100 mg capsule Completed ? 2020 TAKE ONE CAPSULE BY MOUTH THREE TIMES DAILY FOR 7 DAYS ivermectin 3 mg tablet Active ? Not avail able TAKE 7 TABLETS BY MOUTH EVERY 2 WEEKS metformin ER 500 mg tablet,extended release 24 hr Completed ? 11/12/2020 TAKE ONE TABLET BY MOUTH ONE TIME DAILY hhrnmunl-boiqntypw-ljrfssff 3.5 mg/mL-10,000 unit/mL-0.1% eye dr lianna Completed ? 11/12/[address] 1 DROP INTO BOTH EYES THREE TIMES A DAY FOR 7-10 DAYS omeprazole 20 mg capsule,delayed release Active ? Not available TAKE ONE CAPSULE BY MOUTH ONE TIME DAILY BEFORE MEALS progesterone (bulk) 100 % powder Active ? Not available triamterene 37.5 mg-hydrochlorothiazide 25 mg tablet Active ? Not available TAKE ONE TABLET BY MOUTH EVERY DAY IN THE MORNING. Problems Name Status Onset Date Source ? Obstructive Sleep Apnea of Adult Active 11/19/2020 ? Snoring Active 11/19/2020 ? Procedures Date Name Performed by ? ? Appendectomy Information not avai lable ? Knee Arthroscopy/surgery Information not available ? Remove Tonsils and Adenoids Information not available ? Denio Teeth Extraction Information not available Results Lab Results None recorded. Past Encounters 01/26/2021 Obstructive Sleep Apnea of Adult; Oscar Rico, DDS: [address], [address], [place] [address], Ph. Social History Tobacco Smoking Status Former Smoker Vaccine List Vaccine Type influenza, injectable, quadrivalent 05/14/2020 Plan of Care Reminders Provider Appointments None recorded. ? ? Lab None recorded. ? ? Referral None recorded. ? ? Procedures None recorded. ? ? Surgeries None recorded. ? ? Imaging None recorded. ? ? Vitals 01/26/2021 08:30AM FOLLOW UP 30 Height Blood Pressure 5 ft 5.5 in 130/89 mm[Hg] 12/23/2020 08:30AM SPLINT INSERT Height Blood Pressure 5 ft 5.5 in 135/92 mm[Hg] 11/18/2020 03:00PM NEW PATIENT 60 Height Weight BMI Blood Pressure 5 ft 5.5 in 230 lbs 37.7 kg/m2 117/80 mm[Hg]
--- OUTSIDE RECORDS SUMMARY | 2022-06-30 03:52 | XMS_ITS | Encounter Summary ---
:1955 Author Organization [employer] Address [address] [place] [address] Care Team Providers Name Role Phone Denise Kwan Primary Care Provider Encounter Details Date Type Department Care Team Description 02/03/2015 Orders Only [facility], [facility] Laboratory MD Pierre examination, [address] [facility] unspecified (Primary [place], [place] ORTHOPEDICS Dx) [address] [phone] [address] [place] [address] Social History Tobacco Use Types Packs/Day Years Used Date Smoking Tobacco: Never Smokeless Tobacco: Never Alcohol Use Standard Drinks/Week Comments Yes 0 (1 standard drink = 0.6 oz pure alcoho l) 1 drink monthly Sex Assigned at Date Recorded Not on file documented as of this encounter Plan of Treatment Not on filedocumented as of this encounter Visit Diagnoses Diagnosis Preoperative examination, unspecified - Primary documented in this encounter Care Teams Peanut Separator Relationship Specialty Start Date End Date Denise Kwan PCP - General Nurse Practitioner 02/02/15 [facility] [address] [place] [address] documented as of this encounter
--- OUTSIDE RECORDS SUMMARY | 2022-06-30 03:52 | XMS_ITS | Encounter Summary ---
:1955 Author Organization [facility] Address [address] [facility] [place] [address] Care Team Providers Name Role Phone Denise Kwan Primary Care Provider Encounter Details Date Type Department Care Team Description 02/05/2015 Hospital Encounter [facility] MD Pierre [address] [place], [place] [facility] [phone] [address] [facility] [phone] [place] [address] (Wo rk) Social History Tobacco Use Types Packs/Day Years Used Date Smoking Tobacco: Never Smokeless Tobacco: Never Alcohol Use Standard Drinks/Week Comments Yes 0 (1 standard drink = 0.6 oz pure alcoho l) 1 drink monthly Sex Assigned at Date Recorded Not on file documented as of this encounter Medications at Time of Discharge Medication Sig Dispensed Refills Start Date End Date aspirin EC 325 MG Take one Aspirin tab 70 tablet 3 02/19/20 15 tabletIndications: twice daily for 5 Status post total right weeks. knee replacement ATENOLOL PO Take 50 mg by mouth 0 daily BIESTROGEN,20-80, 5 Apply topically 2 0 MG/GM CREAM times daily fluticasone (FLONASE) [place] 2 sprays into 0 50 MCG/ACT nasal spray both nostrils daily HYDROcodone-acetaminoph Take 1 tablet by mouth 75 tablet 0 02/18/2015 en (NORCO) 5-325 MG per every 6 hours as tabletIndications: needed for moderate to Status post total right severe pain knee replacement mupirocin (BACTROBAN) 2 Apply into each nare 2 0 % nasal ointment times daily order for Equipment being ordered: commode, long handled planning analyst 1 each 0 02/20/2015 DMEIndications: Status Treatment Diagnosis: decreas ed ADL performance secondary to R TKA post total right knee replacement order for Equipment being ordered: Walker Wheels ( [id number]) and Walker ([id number]) 1 each 0 02/16/2015 DMEIndications: Status Treatment Diagnosis: Impaired gait stability s /p TKA. post total right knee replacement PROGESTERONE MICRONIZED Take 100 mg by mouth 0 PO daily triamterene-hydrochloro Take 1 tablet by mouth 0 thiazide (MAXZIDE-25) daily 37.5-25 MG per tablet TRIAMTERENE PO Take 25 mg by mouth 0 0 02/17/2015 daily documented as of this encounter Plan of Treatment Not on filedocumented as of this encounter Visit Diagnoses Not on filedocumented in this encounter Care Teams Producer Assistant Relationship Specialty Start Date End Date Denise Kwan PCP - General Nurse Practitioner 02/02/[address] [address] documented as of this encounter
--- OUTSIDE RECORDS SUMMARY | 2022-06-30 03:52 | XMS_ITS | Encounter Summary ---
:1955 Author Organization [place] Address [address] [place] [address] Care Team Providers Name Role Phone Denise Kwan Primary Care Provider Encounter Details Date Type Department Care Team Description 02/10/2015 Hospital Encounter [facility] Tanmay Jay, examination, [address]onica MD unspecified [facility] [id number] ORTHOPEDICS [phone] [place] [address] Social History Tobacco Use Types [...] 0 MG/GM CREAM times daily fluticasone (FLONASE) [place] 2 sprays into 0 50 MCG/ACT nasal [...] for Equipment being ordered: commode, long handled global program director 1 each 0 02/20/2015 DMEIndications: Status Treatment [...] Name Priority Date/Time Associated Diagnosis Comme nts MRSA MSSA PCR, Routine 02/10/2015 8:20 AM Preoperative Results for this NASAL SWAB CDT examination, procedure are i n unspecified the results section. documented in this encounter Results Methicillin Resistant Staph Aureus PCR (02/10/2015 8:20 AM CDT) Component Value Ref Test Analysis Performed At [facility] Range Method Time Signature Specimen Nares [facility] Methicillin Negative NEG [facility]/Sens S. MRSA Negative: SA Positive [facility] aureus PCR MRSA target DNA not detected , presumed negative for MRSA colonization or the [place] number of bacteria present may be below the limit of detect ion. BANK Staphylococcus aureus target DNA detected, presumed positive for SA colonization. A positive test does not nec essarily indicate the presence of viable organisms. It is, however, presumptive for the presence of SA. ??Thi s result does not preclude MRSA nasal colonization. FDA approved assay performed using [employer] GeneXpert(R) real -time PCR. Specimen Anatomical Collection Method Collection Time Receive d Time (Source) Location / / Volume Laterality 02/10/2015 8:20 AM 5 9:44 CDT AM CDT Tanmay Beebe MD LAB - MICRO GENERAL ORDERAB LES Performing Organization Address City/State/ZIP Code Phon e Number [address] [address] [facility] [address] [place], [place] [address] , [facility] [phone] documented in this encounter Visit Diagnoses Diagnosis Preoperative examination, unspecified documented in this encounter Care Teams Subassembler Relationship Specialty Start Date End Date Denise Kwan PCP - General Nurse Practitioner 02/02/15 [facility] [address] [place] [address] documented as of this encounter
--- NOTE | 2022-06-30 04:46 | ED.NURSE ---
registration states pt left- signed refusal forms.
== END 2022-06-30 03:49 | disposition left against medical advice (07) ==
LOC: ED 03:49
PROVIDERS: Emergency Provider Family Medicine; PCP Internal Medicine
DX: Z53.21 Procedure and treatment not carried out due to patient leaving prior to being seen by health care provider (principal)
CPT/HCPCS: 87502; 87634; 87635